=== PATIENT | female | born 1945 | race Caucasian/White ===

== ENCOUNTER → 2020-01-20 11:00 | Outpatient (BNVA) | payer OTHER, SELFPAY | PROVIDERS: PCP Internal Medicine; Visit Provider Hospitalist | DX: J96.10 Chronic respiratory failure, unspecified whether with hypoxia or hypercapnia (principal); J44.9 Chronic obstructive pulmonary disease, unspecified; R91.8 Other nonspecific abnormal finding of lung field | CPT/HCPCS: 99212 ==

== ENCOUNTER → 2020-07-20 10:20 | Outpatient (BNVA) | payer OTHER, SELFPAY | PROVIDERS: PCP Internal Medicine; Visit Provider Hospitalist | DX: R91.8 Other nonspecific abnormal finding of lung field (principal); J96.11 Chronic respiratory failure with hypoxia; J43.2 Centrilobular emphysema | CPT/HCPCS: 99212 ==

== ENCOUNTER 2020-08-17 12:52 | Outpatient (REF) | payer OTHER, SELFPAY ==
[2020-08-17 12:58] VITALS: O2SAT 98
[2020-08-17 13:44] LABS: ABG Refer to POC result
[2020-08-17 13:46] LABS: ABG pCO2 TC 37 mmHg (32-45); ABG pH TC 7.44 (7.35-7.45)
[2020-08-17 13:47] LABS: ABG Base Excess 1.8 mmol/L; ABG HCO3 25 mmol/L (22-26); ABG pO2 TC 155 (83-108)
--- NOTE | 2020-08-17 17:08 | PFT_ITS ---
FLOWS: FEV1 of 23% of predicted at 0.19 L. FVC 58% of predicted at 1.64 L. FEV1 to FVC ratio of 0.30. No bronchodilator response. LUNG VOLUMES: The patient was unable to perform lung volumes maneuvers. DIFFUSION CAPACITY: The patient was unable to perform DLCO maneuver properly. The following DLCO result may be unreliable - diffusion capacity is severely decreased. IMPRESSION: Very severe obstructive ventilatory defect with no bronchodilator response. Likely underlying severe decrease in diffusion capacity. The patient was not able to tolerate lung capacity maneuver. Benny Wade MD AP/MODL / [id number] MTDD
== END 2020-08-17 12:53 | disposition home or self-care (01) ==
LOC: HO.RESP 12:52
PROVIDERS: Visit Provider Hospitalist
DX: J96.11 Chronic respiratory failure with hypoxia (principal); J43.2 Centrilobular emphysema
CPT/HCPCS: 36600; 82803; 94060; 94729

== ENCOUNTER → 2020-09-14 11:07 | Outpatient (BNVA) | payer OTHER, SELFPAY | PROVIDERS: PCP Internal Medicine; Visit Provider Hospitalist | DX: J43.2 Centrilobular emphysema (principal); J96.11 Chronic respiratory failure with hypoxia; R91.8 Other nonspecific abnormal finding of lung field | CPT/HCPCS: 99212 ==

== ENCOUNTER → 2021-01-11 10:27 | Outpatient (BNVA) | payer OTHER, SELFPAY | PROVIDERS: PCP Internal Medicine; Visit Provider Hospitalist | DX: J96.11 Chronic respiratory failure with hypoxia (principal); J43.2 Centrilobular emphysema; R91.8 Other nonspecific abnormal finding of lung field | CPT/HCPCS: 99212 ==

== ENCOUNTER → 2021-06-14 11:01 | Outpatient (BNVA) | payer OTHER, SELFPAY | PROVIDERS: PCP Internal Medicine; Visit Provider Hospitalist | DX: J43.2 Centrilobular emphysema (principal); J96.11 Chronic respiratory failure with hypoxia; R91.8 Other nonspecific abnormal finding of lung field | CPT/HCPCS: 99212 ==

== ENCOUNTER → 2021-07-26 12:41 | Outpatient (BNVA) | payer OTHER, SELFPAY | PROVIDERS: PCP Internal Medicine; Visit Provider Hospitalist | DX: J43.2 Centrilobular emphysema (principal); J96.11 Chronic respiratory failure with hypoxia | CPT/HCPCS: 94010; 94618; 99211 ==

== ENCOUNTER → 2021-12-13 11:28 | Outpatient (BNVA) | payer OTHER, SELFPAY | PROVIDERS: PCP Family Medicine; Visit Provider Hospitalist | DX: J43.2 Centrilobular emphysema (principal); J96.11 Chronic respiratory failure with hypoxia; R91.8 Other nonspecific abnormal finding of lung field; G47.00 Insomnia, unspecified | CPT/HCPCS: 99212 ==

== ENCOUNTER → 2022-04-11 10:21 | Outpatient (BNVA) | payer OTHER, SELFPAY | PROVIDERS: PCP Family Medicine; Visit Provider Hospitalist | DX: J43.2 Centrilobular emphysema (principal); J96.11 Chronic respiratory failure with hypoxia; R91.8 Other nonspecific abnormal finding of lung field; G47.00 Insomnia, unspecified | CPT/HCPCS: 99212 ==

== ENCOUNTER 2022-10-17 09:58 | Outpatient (AMB) | payer OTHER, SELFPAY ==
[2022-10-17 10:10] VITALS: BP 110/60; PULSE 69; O2SAT 97; BMI 17.7
--- NOTE | 2022-10-17 10:10 | A.OFFVIS_ITS ---
Intake Vital Signs 10/17/22 10:10 Height 5 ft 3 in Weight 100 lb BMI 17.7 BP 110/60 Blood Pressure Location Lt brachial Position Sitting Pulse 69 Pulse Source Pulse Oximeter Pulse Oximetry (%) 97 Oxygen Delivery Method Room Air Comment 4 Liters Oxygen([facility]) Intake Visit Reasons: copd Clerk Manager Required: No Allergies codeine Allergy (Severe, Verified 10/17/22 10:15) Hives Cats Allergy (Severe, Uncoded 10/17/22 10:15) Rash/Hives Seasonal Allergies Allergy (Severe, Uncoded 10/17/22 10:15) Anaphylaxis Tetanus Allergy (Severe, Uncoded 10/17/22 10:15) Anaphylaxis HPI HPI Comments History of Present Illness Details The patient is a 77 y/o woman with a history of COPD in addition to nodular densities. She has currently been follow-up at the lung [facility]. Currently receiving Advair and also Spiriva. Having issues with hoarseness. She does have a rescue inhaler which is Combivent. She also has a nebulizer. She has not had any recent exacerbations. Over the only issue is to hoarseness a comes and goes. Denies any thrush and she reads as well. She was supposed to start pulmonary rehab but she has been dealing with other active medical issues including her wrist but still hurting her and she cannot use it well. We talked about potentially I am doing online pulmonary rehab which should be very helpful for her at this time. She continues to be on azithromycin for her chronic bronchitis. This medications have been very effective. She had an EKG done by Cardiology a week ago and per report was okay. She was then the 500 mg dose but with the hope of bring it down to 250 when she is doing better. with increasing symptoms the patient will have an x-ray today. If the x-rays abnormal consider repeating the CT scan sooner. 08/15/2019. The patient is here for pulmonary follow-up visit. Apparently back in June she had a fall down the stairs fracturing multiple ribs on her left chest. She was initially seen at [facility] ED which she was discharged. Subsequently her symptoms got worse she will having more shortness of breath more congestion she went to [facility]. There she had x- rays demonstrating 5 rib fractures on the left and also airspace disease on the right hemithorax along with mediastinal fullness in the hilum. She was treated with antibiotics. Her his blood cultures did come back positive for strep pneumo. She was treated appropriately for that. She still having shortness of breath she is having to use her oxygen more regularly. She still gets some chest discomfort. Primarily on the left side. She continues to have the shortness of breath and cough. In view of the abnormal chest x-ray in with a history of pulmonary nodules will request a CT scan of the chest to further address the right-sided abnormalities especially when she had a relatively normal stable x- ray on February 2019. 09/18/2019 the patient is here for pulmonary follow-up visit. She is feeling okay. She does complaint of chest tightness [id number] severity. Last night was have year in today she is little bit less. Likely has to do with the weather. She did take the antibiotics and prednisone and does were helpful when she was taking him. She also has been complaining of back pain. She did have a CT scan of the chest demonstrating no interval worsening nodules and no other new findings. No evidence of pneumonia. Unfortunately, it appears that she has a subacute L3 lumbar compression fracture. She did fall back in April in this may be related to that. She is having some discomfort in that area she is going to try Lidoderm patch. She can also follow-up with her primary care doctor. In the meantime will going to try to optimize respiratory therapy. Explained to her the prednisone can linger the healing of her fracture, but, at this point her breathing she is a little harder and she is willing to take a small dose to see if she gets some relief at least the month of September which is going to be hard with the weather. 01/20/2020 the patient is here for pulmonary follow-up visit. Overall she is still complaining of dyspnea on exertion. Jksm-hj-[id number] in severity. The oxygen supplementation has been very helpful. She continues use her respiratory therapy. Her current respiratory regimen has been helpful. We also looked at her most recent CT scan of the chest demonstrating stable pulmonary nodules although she did have the compression fracture. The patient does likely has some component of osteopenia from all the corticosteroids she has required for her underlying COPD. Therefore she will follow-up with her primary care doctor and see about getting a bone density test. 07/20/2020 the patient is here for pulmonary follow-up visit. She is complaining of worsening dyspnea on exertion. She has had more episodes chest tightness and shortness breath. Mostly when she is outside. When she uses her rescue inhaler it is usually not until 1 hour. The trilogy inhaler been very helpful for her. But, does not appear to be helping as this. This point we will max the trilogy inhaler consider other medications such as theophylline in the future if she continues in the meantime will have her pulmonary function studies in the addition to ABG to assess pulmonary capacity. The patient is scheduled to undergo a repeat scan of the chest in November in follow-up with thoracic surgery at time. 09/14/2020 the patient is here for a pulmonary follow-up visit. Since we last spoke the patient did start the higher dose Trelegy. She did not see any significant improvement. She also continues use her portable oxygen concentrator with activity. She complains that is too heavy. It is hard for her to carry. She is looking to potentially investing on a smaller POC through a different provider. Explained to her that the film processing supervisor POC may not potentially provide her with sufficient oxygen supplementation to make it worth it. we did review her pulmonary function studies demonstrating a very severe COPD. She has a diffusing capacity of 15% which explains her significant dyspnea with minimal activity. It is reassuring however that her blood gas demonstrates normal acid- base status and normal pCO2 as well as an elevated PA O2 on her current oxygen supplementation. Therefore, the patient does not require noninvasive ventilator. The patient does need to continue to use her current respiratory regimen. She also would benefit from pulmonary rehabilitation. She would like to avoid in-person pulmonary rehab. She is willing to consider underlying pulmonary rehabilitation. Therefore I will provide her with paperwork to look into at this time. 06/14/2021 The patient is here for a pulmonary follow-up visit. The patient overall has been doing well on the current therapy. She still complains of dyspnea on exertion. This occurs with minimal activity. She is trying to perform exercises at home. I had previously given her information about online pulmonary rehab but she opted not to do that. The patient is considering being evaluated for lung volume reduction interventions. Her pulmonary function studies are significantly abnormal. Her DLCO is only 15 percent. She has also had a history infections in the past. The patient and her family are interested in been evaluated for the Xephyr valves. However, we made a referral to [place] which may be evaluated for this procedure and the patient's insurance does not cover [facility]. We will go ahead and request other centers of excellence which provide the Xephyr valves. In the meantime will continue the current respiratory regimen. Also to note she had to go to [facility] ER with a flutter with rapid ventricular response. The patient did break on her own. However, with her tachyarrhythmias will avoid theophylline at this time. We will also switch her from Albuterol to Xopenex. 12/13/2021 the patient is here for a pulmonary follow-up visit. She sta pato that she has good days and bad days. Today is a very bad day which she feels very tired and weak. Sometimes feels great and she can do a lot of things around the house. She is having difficulties with her sleep. Did not tolerate the Trazodone. Will try Gabapentin. The patient has been following closely at [facility] for the question of lung volume reduction interventions. During the evaluation she did have a repeat CT scan of the chest sometime in September of this year demonstrating some interval increase in her nodular densities. The patient recently also around the same time in September had a CT scan at [facility]. she did follow-up with surgeon and they were not concerned. Therefore my suspicion is that we will follow these changes with repeat CT scan and 4-6 months. the patient continues with current respiratory therapy. She continues with the oxygen supplementation. She has been using the azithromycin 3 times a week. She needs to have an EKG done. She will have not done with her funding specialist or if not I did give her an order for her to do so when she goes to [facility]. 04/11/2022 the patient is here for a pulmonary follow-up visit. Overall the patient is doing well. She continues to have issues with difficulty sleeping at night and also sleeps during the daytime therefore her sleep-wake cycle still not were needs to be. She has tried multiple medications including trazodone and gabapentin without any significant improvement. She is concerned about melatonin. She is willing to try biliary on rule. Also she will try vpvi-[id number] medications she knows to avoid Benadryl as this can be problematic for deep sleep and 4 good sleep hygiene. She did undergo a CT scan of the chest in March 2022 at [facility]. It is reassuring that the nodular density has decreased in size and also that everything else is relatively stable. She is following up with [facility] as far as the lung volume reduction intervention. She is a candidate but she needs to complete pulmonary rehabilitation. I did give her information for her to consider underlying pulmonary rehab. If she feels up to it she will go ahead and follow through with [facility]. She continues years oxygen well. The patient's ABG was also reassuring. She will continue with current respiratory regimen. 10/17/2022 the patient is here for pulmonary follow-up visit. The patient overall has been doing well. She continues on her respiratory therapy. She did have to be admitted briefly to [facility] after developing atrial fibrillation with rapid ventricular response. She did talk about the complex of the cardiac and pulmonary medications and also the beta affect potentially causing her increase tachycardia and palpitations. Therefore will go ahead and switch are viewed oral to levo albuterol to see if this provides some degree of stability. In the meantime she did have a CT scan of the chest back in March 2022 at [facility] demonstrating her pulmonary nodules have been stable and also slightly decreasing in size. She is participating in the lung cancer screening program and she is scheduled to have a repeat CT scan coming up soon. The patient typically develops increasing chest congestion and does well on the azithromycin over the winter months. Although, she is on antiarrhythmic agents and patient is aware that taking antiarrhythmic agents and azithromycin macrolide therapy can resulting worsening QT prolongation. She states that she done before she is tolerating it well. Therefore I did request she get an EKG upon starting the medicine and we can also have serial EKGs to make sure that there is stable QT intervals. [facility] Medical History (Updated 10/17/22 @ 10:15 by Raffaele Foreman MD) Insomnia Pulmonary nodules Chronic respiratory failure COPD (chronic obstructive pulmonary disease) Social History (Updated 07/20/20 @ 10:36 by ROB Lester) Patient Tobacco Use Status: Former Tobacco user Tobacco use type: Cigarette Years Smoked: 54 years Review of Systems Const Reports daytime sleepiness, Reports difficulty sleeping and Denies night sweats ENT Denies change in voice, Denies lip swelling, Denies mouth pain, Reports nasal congestion, Reports nasal discharge and Denies tongue swelling Card Denies chest pain, Reports palpitations, Reports dyspnea and Reports dyspnea on exertion Resp Reports cough, Reports dyspnea and Reports dyspnea on exertion GI Denies abdominal pain Musc Denies no additional complaints Neuro Denies Neuro-related abnormal movements Psych Denies no additional complaints Endo Reports palpitations Agustín/Lymph Denies easy bleeding and Denies lymphadenopathy Aller/Immun Denies lip swelling and Denies tongue swelling Physical Exam Vital Signs: Last Vital Signs Pulse 69 10/17/22 10:10 BP 110/60 10/17/22 10:10 Pulse Ox 97 10/17/22 10:10 Oxygen Delivery Method Room Air 10/17/22 10:10 BMI result Body Mass Index 17.7 Const General: alert Neck Neck: Yes normal visual inspection, Yes full ROM and Yes no lymphadenopathy Chest Chest palpation & inspection: normal inspection of the chest Resp Auscultation: diminished lung sounds Cardio Rate: regular rate Rhythm: regular rhythm Heart sounds: S1 normal heart sound present and S2 normal heart sound present GI Palpation (GI): Soft to palpation and nontender Auscultation: normal bowel sounds Skin General skin exam: rashes and/or lesions noted Assessment & Plan Assessment & Plan (1) COPD (chronic obstructive pulmonary disease): Code(s): J44.9 - Chronic obstructive pulmonary disease, unspecified Qualifiers: COPD type: emphysema Emphysema type: centrilobular Qualified Code(s): J43.2 - Centrilobular emphysema (2) Chronic respiratory failure: Comment: Due to chronic stable COPD Code(s): J96.10 - Chronic respiratory failure, unspecified whether with hypoxia or hypercapnia Qualifiers: Respiratory failure complication: hypoxia Qualified Code(s): J96.11 - Chronic respiratory failure with hypoxia (3) Pulmonary nodules: Code(s): R91.8 - Other nonspecific abnormal finding of lung field (4) Insomnia: Code(s): G47.00 - Insomnia, unspecified Qualifiers: Insomnia type: primary Qualified Code(s): F51.01 - Primary insomnia Plan continue Trelegy 200mcg Continue nebulized therapy Restart Azithromycin MWF, needs to monitor closely QT interval serially with EKGs No Theophylline due to arrhythmias Continue oxygen supplementation On line pulmonary rehab Xopenex as meeded CT chest 4-6 months F/U 4-6 months Orders: Orders CT chest wo IV con 6 Months R91.8 - Other nonspecific abnormal finding of lung field Medications: New levalbuterol tartrate 45 mcg/actuation (Xopenex HFA) 2 puffs inhalation Q6H PRN 3 ea 3RF shortness of breath or wheezing 90 days J45.909 - Unspecified asthma, uncomplicated Changed From levalbuterol HCl 1.25 mg (3 mL) inhalation TID 30 days 270 mL 11RF J44.9 - Chronic obstructive pulmonary disease, unspecified To levalbuterol HCl 1.25 mg (3 mL) inhalation TID 810 mL 3RF 90 days J44.9 - Chronic obstructive pulmonary disease, unspecified From azithromycin Take 1 tablet on Monday/Monday/Monday 250 mg PO 3XW 28 days 12 tabs 4RF J44.9 - Chronic obstructive pulmonary disease, unspecified To azithromycin Take 1 tablet on Monday/Monday/Monday 250 mg PO 3XW 39 tabs 1RF 90 days J44.9 - Chronic obstructive pulmonary disease, unspecified From levalbuterol HCl (Xopenex) 1.25 mg (3 mL) inhalation BID 30 days 180 mL 11RF J44.9 - Chronic obstructive pulmonary disease, unspecified To levalbuterol HCl 1.25 mg (3 mL) inhalation TID 30 days 270 mL 11RF J44.9 - Chronic obstructive pulmonary disease, unspecified Coding Level of Care Code Est Pt Level 4 (37794) Diagnoses Centrilobular emphysema J43.2 COPD type: emphysema Emphysema type: centrilobular Chronic respiratory failure with hypoxia J96.11 Respiratory failure complication: hypoxia Pulmonary nodules R91.8 Primary insomnia F51.01 Insomnia type: primary Time Spent (min) 18
== END 2022-10-17 10:39 | disposition home or self-care (01) ==
PROVIDERS: PCP Family Medicine; Visit Provider Hospitalist
DX: J43.2 Centrilobular emphysema (principal); J96.11 Chronic respiratory failure with hypoxia; R91.8 Other nonspecific abnormal finding of lung field; F51.01 Primary insomnia
CPT/HCPCS: 99214

== ENCOUNTER → 2022-10-17 09:58 | Outpatient (BNVA) | payer OTHER, SELFPAY | PROVIDERS: Visit Provider Hospitalist | DX: J43.2 Centrilobular emphysema (principal); J96.11 Chronic respiratory failure with hypoxia; R91.8 Other nonspecific abnormal finding of lung field; F51.01 Primary insomnia; Z79.899 Other long term (current) drug therapy | CPT/HCPCS: 99212 ==

== ENCOUNTER 2023-04-17 09:22 | Outpatient (AMB) | payer OTHER, SELFPAY ==
[2023-04-17 09:57] VITALS: BP 128/70; PULSE 80; O2SAT 94; BMI 18.3
--- NOTE | 2023-04-17 09:57 | A.OFFVIS_ITS ---
Intake Vital Signs 04/17/23 09:57 Height 5 ft 2 in Weight 100 lb BMI 18.3 BP 128/70 Blood Pressure Location Lt brachial Position Sitting Pulse 80 Pulse Source Pulse Oximeter Pulse Oximetry (%) 94 Oxygen Delivery Method Room Air Comment 5 Liters Oxygen([facility]) Intake Visit Reasons: copd [place] [employer] Required: No Allergies codeine Allergy (Severe, Verified 04/17/23 10:00) Hives Cats Allergy (Severe, Uncoded 04/17/23 10:00) Rash/Hives Seasonal Allergies Allergy (Severe, Uncoded 04/17/23 10:00) Anaphylaxis Tetanus Allergy (Severe, Uncoded 04/17/23 10:00) Anaphylaxis HPI HPI Comments History of Present Illness Details The patient is a 78 y/o woman with a history of COPD in addition to nodular densities. She has currently been follow-up at the lung [facility]. Currently receiving Advair and also Spiriva. Having issues with hoarseness. She does have a rescue inhaler which is Combivent. She also has a nebulizer. She has not had any recent exacerbations. Over the only issue is to hoarseness a comes and goes. Denies any thrush and she reads as well. She was supposed to start pulmonary rehab but she has been dealing with other active medical issues including her wrist but still hurting her and she cannot use it well. We talked about potentially I am doing online pulmonary rehab which should be very helpful for her at this time. She continues to be on azithromycin for her chronic bronchitis. This medications have been very effective. She had an EKG done by Cardiology a week ago and per report was okay. She was then the 500 mg dose but with the hope of bring it down to 250 when she is doing better. with increasing symptoms the patient will have an x-ray today. If the x-rays abnormal consider repeating the CT scan sooner. 10/17/2022 the patient is here for pulmon ailyn follow-up visit. The patient overall has been doing well. She continues on her respiratory therapy. She did have to be admitted briefly to [facility] after developing atrial fibrillation with rapid ventricular response. She did talk about the complex of the cardiac and pulmonary medications and also the beta affect potentially causing her increase tachycardia and palpitations. Therefore will go ahead and switch are viewed oral to levo albuterol to see if this provides some degree of stability. In the meantime she did have a CT scan of the chest back in March 2022 at [facility] demonstrating her pulmonary nodules have been stable and also slightly decreasing in size. She is participating in the lung cancer screening program and she is scheduled to have a repeat CT scan coming up soon. The patient typically develops increasing chest congestion and does well on the azithromycin over the winter months. Although, she is on antiarrhythmic agents and patient is aware that taking antiarrhythmic agents and azithromycin macrolide therapy can resulting worsening QT prolongation. She states that she done before she is tolerating it well. Therefore I did request she get an EKG upon starting the medicine and we can also have serial EKGs to make sure that there is stable QT intervals. 04/17/2023 the patient is here for a pulm onary follow-up visit. The patient has been doing fair. She tried the Xopenex but it did not help her breathing as much as the Combivent. Therefore she went back on the Combivent. I did explain to her that if her atrial fibrillation is acting up with increased heart rate then she may want to just use levalbuterol during those episodes. Meantime she continues on high-dose Trelegy. She has not on prednisone which is reassuring. She also has nebulized therapy including budesonide that are recent to the pharmacy. She will be stopping the macrolide therapy this month. Clinically she is doing well from a respiratory status. She did have a recent CT scan of the chest done at [facility] which demonstrated a new pulmonary nodule. She was seen by thoracic surgery and they recommended a CT scan in 3 months time. Indeed the patient is high risk for any diagnostic interventions. She has advanced respiratory failure. Would not advise her undergoing any type of biopsy. However, the nodule appears to be concerning his increasing size then would consider stereotactic radiation. For now will just have to wait for the repeat CT scan which is planned for July of this year. [facility] Medical History (Updated 10/17/22 @ 10:15 by Raffaele Foreman MD) Insomnia Pulmonary nodules Chronic respiratory failure COPD (chronic obstructive pulmonary disease) Social History (Updated 07/20/20 @ 10:36 by ROB Lester) Patient Tobacco Use Status: Former Tobacco user Tobacco use type: Cigarette Years Smoked: 54 years Review of Systems Const Reports daytime sleepiness, Reports difficulty sleeping and Denies night sweats ENT Denies change in voice, Denies lip swelling, Denies mouth pain, Reports nasal congestion, Reports nasal discharge and Denies tongue swelling Card Denies chest pain, Reports palpitations, Reports dyspnea and Reports dyspnea on exertion Resp Reports cough, Reports dyspnea and Reports dyspnea on exertion GI Denies abdominal pain Musc Denies no additional complaints Neuro Denies Neuro-related abnormal movements Psych Denies no additional complaints Endo Reports palpitations Agustín/Lymph Denies easy bleeding and Denies lymphadenopathy Aller/Immun Denies lip swelling and Denies tongue swelling Physical Exam Vital Signs: Last Vital Signs Pulse 80 04/17/23 09:57 BP 128/70 04/17/23 09:57 Pulse Ox 94 04/17/23 09:57 Oxygen Delivery Method Room Air 04/17/23 09:57 BMI result Body Mass Index 18.3 Const General: alert Neck Neck: Yes normal visual inspection, Yes full ROM and Yes no lymphadenopathy Chest Chest palpation & inspection: normal inspection of the chest Resp Effort & Inspection: normal respiratory effort Auscultation: diminished lung sounds Cardio Rate: regular rate Rhythm: regular rhythm Heart sounds: S1 normal heart sound present and S2 normal heart sound present GI Palpation (GI): Soft to palpation and nontender Auscultation: normal bowel sounds Skin General skin exam: rashes and/or lesions noted Assessment & Plan Assessment & Plan (1) COPD (chronic obstructive pulmonary disease): Code(s): J44.9 - Chronic obstructive pulmonary disease, unspecified Qualifiers: COPD type: emphysema Emphysema type: centrilobular Qualified Code(s): J43.2 - Centrilobular emphysema (2) Chronic respiratory failure: Comment: Due to chronic stable COPD Code(s): J96.10 - Chronic respiratory failure, unspecified whether with hypoxia or hypercapnia Qualifiers: Respiratory failure complication: hypoxia Qualified Code(s): J96.11 - Chronic respiratory failure with hypoxia (3) Pulmonary nodules: Code(s): R91.8 - Other nonspecific abnormal finding of lung field (4) Insomnia: Code(s): G47.00 - Insomnia, unspecified Qualifiers: Insomnia type: primary Qualified Code(s): F51.01 - Primary insomnia Plan continue Trelegy 200mcg continue combivent Continue nebulized therapy stop Azithromycin MWF this month No Theophylline due to arrhythmias Continue oxygen supplementation On line pulmonary rehab Xopenex as meeded CT chest in July 2023 at [facility]. If the nodule increases in size and is concerning for malignant process would be reasonable to offer her stereotactic r adiation without a biopsy in view of her high risk for complications. F/U 6 months Medications: Changed From budesonide 0.5 mg (2 mL) inhalation BID 30 days 120 mL 11RF J44.9 - Chronic obstructive pulmonary disease, unspecified To budesonide 0.5 mg (2 mL) inhalation DAILY 30 days 60 mL 11RF J44.9 - Chronic obstructive pulmonary disease, unspecified Refilled Trelegy Ellipta 200-62.5-25 mcg (wturenfsaba-jkdecofxt-rmenolhx) 1 inh inhalation DAILY 90 days 3 ea 3RF NS ipratropium-albuterol 20-100 mcg/actuation (Combivent Respimat) space evenly during waking hours 1 puff inhalation QID 30 days 4 grams 11RF Coding Level of Care Code Est Pt Level 4 (68291) Diagnoses Centrilobular emphysema J43.2 COPD type: emphysema Emphysema type: centrilobular Chronic respiratory failure with hypoxia J96.11 Respiratory failure complication: hypoxia Pulmonary nodules R91.8 Primary insomnia F51.01 Insomnia type: primary Time Spent (min) 17
== END 2023-04-17 10:22 | disposition home or self-care (01) ==
PROVIDERS: PCP Family Medicine; Visit Provider Hospitalist
DX: J43.2 Centrilobular emphysema (principal); J96.11 Chronic respiratory failure with hypoxia; R91.8 Other nonspecific abnormal finding of lung field; F51.01 Primary insomnia
CPT/HCPCS: 99214

== ENCOUNTER → 2023-04-17 09:22 | Outpatient (BNVA) | payer OTHER, SELFPAY | PROVIDERS: PCP Family Medicine; Visit Provider Hospitalist | DX: J43.2 Centrilobular emphysema (principal); J96.11 Chronic respiratory failure with hypoxia; R91.8 Other nonspecific abnormal finding of lung field; F51.01 Primary insomnia | CPT/HCPCS: 99212 ==

== ENCOUNTER 2023-08-11 09:54 | Outpatient (REF) | payer OTHER, SELFPAY | END 2023-08-11 09:55 | disposition home or self-care (01) | LOC: CF 09:54 | DX: Z13.89 Encounter for screening for other disorder (principal) ==

== ENCOUNTER 2023-11-28 08:55 | Outpatient (AMB) | payer OTHER, SELFPAY ==
[2023-11-28 09:07] VITALS: BP 118/60; PULSE 80; O2SAT 97; BMI 16.6
--- NOTE | 2023-11-28 09:07 | A.OFFVIS_ITS ---
Vital Signs 11/28/23 09:07 Height 5 ft 2 in Weight 91 lb BMI 16.6 BP 118/60 Blood Pressure Location Lt brachial Position Sitting Pulse 80 Pulse Source Pulse Oximeter Pulse Oximetry (%) 97 Oxygen Delivery Method Room Air Comment 3 Liters Oxygen([facility]) Intake Visit Reasons: COPD Threat Monitoring Analyst Required: No Allergies codeine Allergy (Severe, Verified 11/28/23 09:10) Hives Cats Allergy (Severe, Uncoded 11/28/23 09:10) Rash/Hives Seasonal Allergies Allergy (Severe, Uncoded 11/28/23 09:10) Anaphylaxis Tetanus Allergy (Severe, Uncoded 11/28/23 09:10) Anaphylaxis HPI Comments Details: The patient is a 78 y/o woman with a history of COPD in addition to nodular densities. She has currently been follow-up at the lung cancer screening program. Currently receiving Advair and also Spiriva. Having issues with hoarseness. She does have a rescue inhaler which is Combivent. She also has a nebulizer. She has not had any recent exacerbations. Over the only issue is to hoarseness a comes and goes. Denies any thrush and she reads as well. She was supposed to start pulmonary rehab but she has been dealing with other active medical issues including her wrist but still hurting her and she cannot use it well. We talked about potentially I am doing online pulmonary rehab which should be very helpful for her at this time. She continues to be on azithromycin for her chronic bronchitis. This medications have been very effective. She had an EKG done by Cardiology a week ago and per report was okay. She was then the 500 mg dose but with the hope of bring it down to 250 when she is doing better. with increasing symptoms the patient will have an x-ray today. If the x-rays abnormal consider repeating the CT scan sooner. 10/17/2022 the patient is here for pulmonary follow-up visit. The patient overall has been doing well. She continues on her respiratory therapy. She did have to be admitted briefly to [facility] after developing atrial fibrillation with rapid ventricular response. She did talk about the complex of the cardiac and pulmonary medications and also the beta affect potentially causing her increase tachycardia and palpitations. Therefore will go ahead and switch are viewed oral to levo albuterol to see if this provides some degree of stability. In the meantime she did have a CT scan of the chest back in March 2022 at [facility] demonstrating her pulmonary nodules have been stable and also slightly decreasing in size. She is participating in the lung cancer screening program and she is scheduled to have a repeat CT scan coming up soon. The patient typically develops increasing chest congestion and does well on the azithromycin over the winter months. Although, she is on antiarrhythmic agents and patient is aware that taking antiarrhythmic agents and azithromycin macrolide therapy can resulting worsening QT prolongation. She states that she done before she is tolerating it well. Therefore I did request she get an EKG upon starting the medicine and we can also have serial EKGs to make sure that there is stable QT intervals. 04/17/2023 the patient is here for a pulmonary follow-up visit. The patient has been doing fair. She tried the Xopenex but it did not help her breathing as much as the Combivent. Therefore she went back on the Combivent. I did explain to her that if her atrial fibrillation is acting up with increased heart rate then she may want to just use levalbuterol during those episodes. Meantime she continues on high-dose Trelegy. She has not on prednisone which is reassuring. She also has nebulized therapy including budesonide that are recent to the pharmacy. She will be stopping the macrolide therapy this month. Clinically she is doing well from a respiratory status. She did have a recent CT scan of the chest done at [facility] which demonstrated a new pulmonary nodule. She was seen by thoracic surgery and they recommended a CT scan in 3 months time. Indeed the patient is high risk for any diagnostic interventions. She has advanced respiratory failure. Would not advise her undergoing any type of biopsy. However, the nodule appears to be concerning his increasing size then would consider stereotactic radiation. For now will just have to wait for the repeat CT scan which is planned for July of this year. 11/28/2023 the patient is here for a pulmonary follow-up visit. Since we last spoke she had a fall and she fractured her right hip. She was admitted to [facility] and then discharged over to [facility]. There she received therapy. She is now back at using a walker although she is very limited because of pain. Breathing chavez she is doing okay. Because of all the issues going on the patient was not able to get her CT scan at [facility]. She does have 1 nodule that has been concerning in appearance. She had to cancel her CT scan. She is going to wait another month or so to receive physical therapy and she is going to call to reschedule the CT scan. If she has any issues she can always call here and I can order it for her. The patient will continue her current respiratory therapy. Her oxygenation has actually been better. She had been able to tolerate 2 L at rest and 3 L with activity with a good oxygenation. Has not had to use the higher levels of oxygen which is reassuring. At this point the patient is doing well will plan to follow-up in April. If she has any issues prior to that she will call for an earlier assessment. [facility] Medical History (Updated 10/17/22 @ 10:15 by Raffaele Foreman MD) Insomnia Pulmonary nodules Chronic respiratory failure COPD (chronic obstructive pulmonary disease) Social History (Updated 07/20/20 @ 10:36 by ROB Lester) Patient Tobacco Use Status: Former Tobacco user Tobacco use type: Cigarette Years Smoked: 54 years Review of Systems Const Reports daytime sleepiness, Reports difficulty sleeping and Denies night sweats ENT Denies change in voice, Denies lip swelling, Denies mouth pain, Reports nasal congestion, Reports nasal discharge and Denies tongue swelling Card Denies chest pain, Reports palpitations, Reports dyspnea and Reports dyspnea on exertion Resp Reports cough, Reports dyspnea and Reports dyspnea on exertion GI Denies abdominal pain Musc Reports as per HPI, Reports abnormal gait, Reports arthralgias, Reports joint swelling, Reports muscle weakness and Reports stiffness Neuro Denies Neuro-related abnormal movements and Reports abnormal gait Psych Denies no additional complaints Endo Reports palpitations Agustín/Lymph Denies easy bleeding and Denies lymphadenopathy Aller/Immun Denies lip swelling and Denies tongue swelling Physical Exam Vital Signs: Last Vital Signs Pulse 80 11/28/23 09:07 BP 118/60 11/28/23 09:07 Pulse Ox 97 11/28/23 09:07 Oxygen Delivery Method Room Air 11/28/23 09:07 BMI result Body Mass Index 16.6 Const General: alert Neck Neck: Yes normal visual inspection, Yes full ROM and Yes no lymphadenopathy Chest Chest palpation & inspection: normal inspection of the chest Resp Effort & Inspection: normal respiratory effort Auscultation: diminished lung sounds Cardio Rate: regular rate Rhythm: regular rhythm Heart sounds: S1 normal heart sound present and S2 normal heart sound present GI Palpation (GI): Soft to palpation and nontender Auscultation: normal bowel sounds Skin General skin exam: rashes and/or lesions noted Assessment & Plan Assessment & Plan (1) COPD (chronic obstructive pulmonary disease): Code(s): J44.9 - Chronic obstructive pulmonary disease, unspecified Category: Medical Qualifiers: COPD type: emphysema Emphysema type: centrilobular Qualified Code(s): J43.2 - Centrilobular emphysema (2) Chronic respiratory failure: Comment: Due to chronic stable COPD Code(s): J96.10 - Chronic respiratory failure, unspecified whether with hypoxia or hypercapnia Category: Medical Qualifiers: Respiratory failure complication: hypoxia Qualified Code(s): J96.11 - Chronic respiratory failure with hypoxia (3) Pulmonary nodules: Code(s): R91.8 - Other nonspecific abnormal finding of lung field Category: Medical (4) Insomnia: Code(s): G47.00 - Insomnia, unspecified Category: Medical Qualifiers: Insomnia type: primary Qualified Code(s): F51.01 - Primary insomnia Plan continue Trelegy 200mcg continue combivent Continue nebulized therapy No Theophylline due to arrhythmias Continue oxygen supplementation Xopenex as meeded CT chest postponed. If the nodule increases in size and is concerning for malignant process would be reasonable to offer her stereotactic radiation without a biopsy in view of her high risk for complications. F/U 6 months Coding Level of Care Code Est Pt Level 4 (93013) Complex EM visit Add On G2211 Diagnoses Centrilobular emphysema J43.2 COPD type: emphysema Emphysema type: centrilobular Chronic respiratory failure with hypoxia J96.11 Respiratory failure complication: hypoxia Pulmonary nodules R91.8 Primary insomnia F51.01 Insomnia type: primary Time Spent (min) 17
== END 2023-11-28 09:25 | disposition home or self-care (01) ==
PROVIDERS: PCP Family Medicine; Referring Provider Family Medicine; Visit Provider Hospitalist
DX: J43.2 Centrilobular emphysema (principal); J96.11 Chronic respiratory failure with hypoxia; R91.8 Other nonspecific abnormal finding of lung field; F51.01 Primary insomnia
CPT/HCPCS: 99214

== ENCOUNTER → 2023-11-28 08:55 | Outpatient (BNVA) | payer OTHER, SELFPAY | PROVIDERS: PCP Family Medicine; Visit Provider Hospitalist | DX: J43.2 Centrilobular emphysema (principal); J96.11 Chronic respiratory failure with hypoxia; R91.8 Other nonspecific abnormal finding of lung field; F51.01 Primary insomnia | CPT/HCPCS: 99212 ==

== ENCOUNTER 2024-04-19 11:24 | Outpatient (AMB) | payer OTHER, SELFPAY ==
[2024-04-19 11:27] VITALS: BP 108/64; PULSE 77; O2SAT 98; BMI 15.9
--- NOTE | 2024-04-19 11:27 | A.OFFVIS_ITS ---
Vital Signs 04/19/24 11:27 Height 5 ft 2 in Weight 87 lb 1.321 oz BMI 15.9 BP 108/64 Blood Pressure Location Lt brachial Position Sitting Pulse 77 Pulse Source Pulse Oximeter Pulse Oximetry (%) 98 Oxygen Delivery Method Nasal Cannula Oxygen Flow Rate 4 Intake Visit Reasons: COPD Allergies codeine Allergy (Severe, Verified 04/19/24 11:30) Hives Cats Allergy (Severe, Uncoded 04/19/24 11:30) Rash/Hives Seasonal Allergies Allergy (Severe, Uncoded 04/19/24 11:30) Anaphylaxis Tetanus Allergy (Severe, Uncoded 04/19/24 11:30) Anaphylaxis HPI Comments Details: The patient is a 79 y/o woman with a history of COPD in addition to nodular densities. She has currently been follow-up at the lung cancer screening program. Currently receiving Advair and also Spiriva. Having issues with hoarseness. She does have a rescue inhaler which is Combivent. She also has a nebulizer. She has not had any recent exacerbations. Over the only issue is to hoarseness a comes and goes. Denies any thrush and she reads as well. She was supposed to start pulmonary rehab but she has been dealing with other active medical issues including her wrist but still hurting her and she cannot use it well. We talked about potentially I am doing online pulmonary rehab which should be very helpful for her at this time. She continues to be on azithromycin for her chronic bronchitis. This medications have been very effective. She had an EKG done by Cardiology a week ago and per report was okay. She was then the 500 mg dose but with the hope of bring it down to 250 when she is doing better. with increasing symptoms the patient will have an x-ray today. If the x-rays abnormal consider repeating the CT scan sooner. 10/17/2022 the patient is here for pulmonary follow-up visit. The patient overall has been doing well. She continues on her respiratory therapy. She did have to be admitted briefly to [facility] after developing atrial fibrillation with rapid ventricular response. She did talk about the complex of the cardiac and pulmonary medications and also the beta affect potentially causing her increase tachycardia and palpitations. Therefore will go ahead and switch are viewed oral to levo albuterol to see if this provides some degree of stability. In the meantime she did have a CT scan of the chest back in March 2022 at [facility] demonstrating her pulmonary nodules have been stable and also slightly decreasing in size. She is participating in the lung cancer screening program and she is scheduled to have a repeat CT scan coming up soon. The patient typically develops increasing chest congestion and does well on the azithromycin over the winter months. Although, she is on antiarrhythmic agents and patient is aware that taking antiarrhythmic agents and azithromycin macrolide therapy can resulting worsening QT prolongation. She states that she done before she is tolerating it well. Therefore I did request she get an EKG upon starting the medicine and we can also have serial EKGs to make sure that there is stable QT intervals. 04/17/2023 the patient is here for a pulmonary follow-up visit. The patient has been doing fair. She tried the Xopenex but it did not help her breathing as much as the Combivent. Therefore she went back on the Combivent. I did explain to her that if her atrial fibrillation is acting up with increased heart rate then she may want to just use levalbuterol during those episodes. Meantime she continues on high-dose Trelegy. She has not on prednisone which is reassuring. She also has nebulized therapy including budesonide that are recent to the pharmacy. She will be stopping the macrolide therapy this month. Clinically s he is doing well from a respiratory status. She did have a recent CT scan of the chest done at [facility] which demonstrated a new pulmonary nodule. She was seen by thoracic surgery and they recommended a CT scan in 3 months time. Indeed the patient is high risk for any diagnostic interventions. She has advanced respiratory failure. Would not advise her undergoing any type of biopsy. However, the nodule appears to be concerning his increasing size then would consider stereotactic radiation. For now will just have to wait for the repeat CT scan which is planned for July of this year. 11/28/2023 the patient is here for a pulmonary follow-up visit. Since we last spoke she had a fall and she fractured her right hip. She was admitted to [facility] and then discharged over to [facility]. There she received therapy. She is now back at using a walker although she is very limited because of pain. Breathing chavez she is doing okay. Because of all the issues going on the patie nt was not able to get her CT scan at [facility]. She does have 1 nodule that has been concerning in appearance. She had to cancel her CT scan. She is going to wait another month or so to receive physical therapy and she is going to call to reschedule the CT scan. If she has any issues she can always call here and I can order it for her. The patient will continue her current respiratory therapy. Her oxygenation has actually been better. She had been able to tolerate 2 L at rest and 3 L with activity with a good oxygenation. Has not had to use the higher levels of oxygen which is reassuring. At this point the patient is doing well will plan to follow-up in April. If she has any issues prior to that she will call for an earlier assessment. 04/19/2024 the patient is here for pulmonary follow-up visit. She is still under the weather. She has been sick for about 2 weeks. She was having significant chest congestion nasal congestion and cough. In although she is feeling a little better but she still having a lot of congestion difficulty expectorating. She is using Mucinex partial response. In addition to that she was found to have a new pulmonary nodule that has to be followed closely. She is following closely also with thoracic surgery. Her CT scan scheduled for next week. Therefore will go ahead and treat her for a lower respiratory infection to make sure with clear air as much as possible from her underlying acute illness to make sure that we see proper findings on the CT scan. She continues with the oxygen therapy with good effect. Continues with inhaler therapy also with good effect. Will plan to follow-up sometime in the fall. If she develops any worsening symptoms she will call. In the meantime will request her CT scan from next week. [facility] Medical History (Updated 04/21/24 @ 22:25 by Raffaele Foreman MD) Insomnia Pulmonary nodules Chronic respiratory failure COPD (chronic obstructive pulmonary disease) Social History Patient Tobacco Use Status: Former Tobacco user Tobacco use type: Cigarette Years Smoked: 54 years Review of Systems Const Reports daytime sleepiness, Reports difficulty sleeping and Denies night sweats ENT Denies change in voice, Denies lip swelling, Denies mouth pain, Reports nasal congestion, Reports nasal discharge and Denies tongue swelling Card Denies chest pain, Reports palpitations, Reports dyspnea and Reports dyspnea on exertion Resp Reports cough, Reports dyspnea and Reports dyspnea on exertion GI Denies abdominal pain Musc Reports as per HPI, Reports abnormal gait, Reports arthralgias, Reports joint swelling, Reports muscle weakness and Reports stiffness Neuro Denies Neuro-related abnormal movements and Reports abnormal gait Psych Denies no additional complaints Endo Reports palpitations Agustín/Lymph Denies easy bleeding and Denies lymphadenopathy Aller/Immun Denies lip swelling and Denies tongue swelling Physical Exam Vital Signs: Last Vital Signs Pulse 77 04/19/24 11:27 BP 108/64 04/19/24 11:27 Pulse Ox 98 04/19/24 11:27 Oxygen Delivery Method Nasal Cannula 04/19/24 11:27 Oxygen Flow Rate 4 04/19/24 11:27 BMI result Body Mass Index 15.9 Const General: alert Neck Neck: Yes normal visual inspection, Yes full ROM and Yes no lymphadenopathy Chest Chest palpation & inspection: normal inspection of the chest Resp Effort & Inspection: normal respiratory effort Auscultation: diminished lung sounds Cardio Rate: regular rate Rhythm: regular rhythm Heart sounds: S1 normal heart sound present and S2 normal heart sound present GI Palpation (GI): Soft to palpation and nontender Auscultation: normal bowel sounds Skin General skin exam: rashes and/or lesions noted Assessment & Plan Assessment & Plan (1) COPD (chronic obstructive pulmonary disease): Code(s): J44.9 - Chronic obstructive pulmonary disease, unspecified Category: Medical Qualifiers: COPD type: COPD with acute lower respiratory infection Qualified Code(s): J44.0 - Chronic obstructive pulmonary disease with (acute) lower respiratory infection (2) Chronic respiratory failure: Comment: Due to chronic stable COPD Code(s): J96.10 - Chronic respiratory failure, unspecified whether with hypoxia or hypercapnia Category: Medical Qualifiers: Respiratory failure complication: hypoxia Qualified Code(s): J96.11 - Chronic respiratory failure with hypoxia (3) Pulmonary nodules: Code(s): R91.8 - Other nonspecific abnormal finding of lung field Category: Medical (4) Insomnia: Code(s): G47.00 - Insomnia, unspecified Category: Medical Qualifiers: Insomnia type: primary Qualified Code(s): F51.01 - Primary insomnia Plan continue Trelegy 200mcg continue combivent Continue nebulized therapy start Vantin/Doxy start low dose prednisone sputum culture if no better No Theophylline due to arrhythmias Continue oxygen supplementation Xopenex as meeded CT chest at [facility] F/U 4-6 months Medications: New doxycycline hyclate 100 mg PO BID 20 caps 0RF 10 days amoxicillin-pot clavulanate 875-125 mg 1 tab PO BID 20 tabs 0RF 10 days prednisone PO daily; Take 2 tabs daily x 5 days, then 1 tab daily x 5 days 15 tabs 0RF 10 days Coding Level of Care Code Est Pt Level 4 (52429) Complex EM visit Add On G2211 Diagnoses Chronic obstructive pulmonary disease with acute lower respiratory infection J44.0 COPD type: COPD with acute lower respiratory infection Chronic respiratory failure with hypoxia J96.11 Respiratory failure complication: hypoxia Pulmonary nodules R91.8 Primary insomnia F51.01 Insomnia type: primary Time Spent (min) 17
--- OUTSIDE RECORDS SUMMARY | 2024-04-19 13:11 | XMS_ITS | Clinical Summary ---
Author Organization [facility] [address] [facility] Address [address] [place] [address] Phone Care Team Providers Care Car Dropper Name Role Phone Rickie Simpson MD Primary Care Provider [phone] Allergies Active Allergy Reactions Criticality Noted Date Comments Cat Dander Runny nose 08/18/2008 Codeine Rash 10/02/2007 Gabapentin Other 07/20/2022 Feels hungover the next day, brain fog Other 06/19/2008 Pollen Extracts 06/19/2008 Tetanus-Diphtheria Toxoids-Td Swelling 10/02/2007 Medications dilTIAZem LA (Cardizem LA) 120 mg 24 hr tablet Take 1 tablet (120 mg total) by mouth 1 (one) time each day. 3 Active propafenone (RYTHMOL) 225 mg tablet Take 1 tablet (225 mg total) by mouth every 12 (twelve) hours. 4 Active apixaban (Eliquis) 5 mg tablet Take 1 tablet (5 mg total) by mouth 2 (two) times a day. 4 Active ipratropium-alb uteroL (Combivent Respimat) 20-100 mcg/actuation inhaler 4 Active fluticasone-ume clidinium-vilan terol (Trelegy Ellipta) 200-62.5-25 mcg inhaler Inhale into the lungs. 4 Active cholecalciferol (VITAMIN D-3) 50 mcg (2,000 unit) tablet Take 1 tablet (2,000 Units total) by mouth 1 (one) time each day. 4 Active budesonide (PULMICORT) 0.5 mg/2 mL nebulizer solution Inhale 2 mL (0.5 mg total) by mouth 1 (one) time each day. Active albuterol 2.5 mg /3 mL (0.083 %) nebulizer solution Take 1 Vial by nebulization every 4 hours as needed for Shortness of Breath. 9 Active Oxygen Therapy (O2) gas Inhale 3 L into the lungs. Active calcium carbonate (TUMS) 500 mg (200 mg elemental calcium) chewable tablet Take 2 Drops by mouth daily. 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 Last seen 06/14/2021. Plan to continue Trelegy 200 mcg, continue nebulized therapy, stop azithromycin MWF. No theophylline due to arrhythmias. Continue oxygen supplementation. Online pulmonary rehab. Start Xopenex. Continue budesonide. Referred to [place] for evaluation for lung volume reduction interventions. Follow-up in 4 to 6 months. Oxygen dependent 10/17/2016 Vitamin D deficiency 02/17/2016 Anxiety 07/03/2015 Lung nodules 12/24/2012 Overview (11/17/2023): Seeing Dr. Lara and being followed Last Assessment & Plan: Ms. Tanner is a 78 y/o female who is being followed by the [facility] with LDCT scans for pulmonary nodules. She presents today for a three month follow up LDCT scan which was performed on July 10, 2023. This shows the previously seen linear consolidation at the left apex to be slightly decreased in size. There is a new irregular, elongated shaped nodular denisity in the anterior lingular (3, 123). We discussed the causes of pulmonary nodules and recommendations include a 3 month follow up for this new opacity. She is instructed to call us with any questions or concerns prior to her next visit. COPD (chronic obstructive pulmonary disease) Osteoporosis 06/19/2008 Thyroid nodule 06/19/2008 Overview (11/17/2023): August 2018 US: CONCLUSIONS: Bilateral tiny thyroid nodules without suspicious features. Atrial fibrillation 10/02/2007 Overview (11/17/2023): Last Assessment & Plan: In sinus rhythm, rate is controlled on diltiazem, rhythm is controlled on Rythmol. She is anticoagulated on Eliquis. She understands risks and benefits of anticoagulation and wished to continue. EKG is stable. Lumbago 10/02/2007 Overview (11/17/2023): Failed surgery. Patient is follow and [facility]. She is prescribe hydrocodone/APAP there. Also treated with injections to the SI joints Neuropathy 10/02/2007 Immunizations Name Administration Dates Next Due Influenza trivalent, 0.5mL ( Fluzone High-dose) 65yo and older 10/24/2022,10/27/2019,11/09/2015 Influenza trivalent, with pr eservative (Fluzone; Afluria) 6mo and older 01/05/2015,02/07/2014,12/24/2012 Influenza, Unspecified 11/25/2021 Moderna SARS-CoV-2 COVID-19, mRNA, LNP-S, preservative free 05/05/2020,04/06/2020 Pfizer SARS-CoV-2 COVID-19, mRNA, LNP-S, preservative free 12/24/2021 Pneumococcal conjugate 13 va lent (Prevnar 13, PCV13) 2mo and older 08/07/2019,07/03/2015 Pneumococcal polysaccharide 23 valent (Pneumovax 23) 2yo and older 12/24/2012 Surgical History Surgery Date Site/Laterality Comments HERNIA REPAIR PROCEDURE: REPAIR INGUINAL HERNIA; COMMENT: pt says nerve entrapment resulted from repair BREAST LUMPECTOMY PROCEDURE: ---- BREAST LUMP BIOPSY ----; COMMENT: cyst per patient BACK SURGERY PROCEDURE: HISTORICAL BACK SURGERY HAND SURGERY PROCEDURE: CO UNLISTED PROCEDURE HANDS/FINGERS; COMMENT: to repair a nerve SHOULDER SURGERY PROCEDURE: CO UNLISTED PROCEDURE SHOULDER Medical History Medical History Date Comments Lumbago 10/02/2007 DX:Lumbago Neuropathy 10/02/2007 DX:Neuropathy Atrial fibrillation ([facility]) 10/02/2007 DX :Atrial fibrillation ([facility]) Osteoporosis 06/19/2008 DX:Osteoporosis Anxiety 07/03/2015 DX:Anxiety COPD (chronic obstructive pu lmonary disease) ([facility]) 11/25/2011 DX:COPD (chronic obstructive pulmonary disease) ([facility]) History of squamous cell car cinoma of skin 07/11/2008 DX:History of squamous cell carcinoma of skin; COMMENT: 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 Lara and being followed Medical non-compliance 04/01/2014 DX:Medica l non-compliance Oxygen dependent 10/17/2016 DX:Oxygen depen dent Thyroid nodule 06/19/2008 DX:Thyroid nodul e Tobacco use disorder 07/29/2009 DX:Tobacco use disorder Unintentional weight loss 04/01/2014 DX:Uni ntentional weight loss; COMMENT: Refusing colonoscopy and mammogram, see notes from [id number]. Lung nodules were stable, no additional f/u was recommended by Dr Morfin Due for repeat thyroid ultrasound (recommended 1 year after ultrasound in 2009), order placed Mar 2014 Vitamin D deficiency 02/17/2016 DX:Vitamin D deficiency Bronchopneumonia 03/08/2017 DX:Bronchopneum onia Family History Medical History Relation Name Comments Lung cancer Father Breast cancer Maternal Grandmother Hypertension Mother DM Coronary artery disease Neg Hx Relation Name Status Comments Father lung and bone C A Maternal Grandmother Mother diabetes, htn, djd Social History Tobacco Use Types Packs/Day Years Used Date Smoking Tobacco: Former Cigarettes Smokeless Tobacco: Never Alcohol Use Standard Drinks/Week Comments Yes 0 (1 standard drink = 0.6 oz pur e alcohol) Comments Unknown Sex and Gender Information Value Date Recorded Sex Assigned at Female 03/27/2024 9:20 AM EST Legal Sex Female 4:22 AM EST Gender Identity Female 03/27/2024 9:20 AM EST Sexual Orientation Not on file Obstetrics History Last Filed Vital Signs Vital Sign Reading Time Taken Comments Blood Pressure 91/54 11/10/2023 12:58 PM EDT Pulse 74 11/10/2023 12:58 PM EDT Temperature - - Respiratory Rate - - Oxygen Saturation 96% 11/08/2023 3:09 PM EDT 4 L O2 Inhaled Oxygen Concentration - - Weight 43.1 kg (95 lb) 11/10/2023 12:58 PM EDT Height 157.5 cm (5' 2 ) 11/10/2023 12:58 PM EDT Body Mass Index 17.38 11/10/2023 12:58 PM EDT Plan of Treatment Upcoming Encounters Date Type Department Care Team (Late st Contact Info) Description 04/22/2024 1:00 PM EDT Appointment [facility] CT Scan [address] [place] [phone] 04/29/2024 1:30 PM EDT Office Visit Thoracic Surgery - [place] [address] [phone] Wen Caceres MD [address] [id number] Health Maintenance Due Date Last Done Comments DTaP,Tdap,and Td Vaccines (1 - Tdap) 1964 Zoster Vaccines (1 of 2) 04/14/1995 RSV Immunization Patients 60+ Years Old (1 - 1-dose 75+ series) 2020 Colorectal Cancer Screening: Stool Based Tests (FOBT/FIT) 01/15/2022 Depression Screening 01/15/2022 Falls Risk Assessment 01/15/2022 Medicare Annual Wellness Visit 01/15/2022 Osteoporosis Screening (Bone Density Screening) 01/15/2022 Social Influencers of Health Screening 01/15/2022 COVID-19 Vaccine ( season) 2023 12/24/2021, 05/05/2020, 04/06/2020 Influenza Vaccine (#1) 2023 3, 11/25/2021, 10/27/2019, Additional history exists Hypertension/CHF/CAD Annual BMP Blood Test 03/02/2024 03/02/2023 Cholesterol Screening (Lipid Panel) 01/10/2027 01/10/2022 Hepatitis C Screening Completed 12/24/2012 Pneumococcal Vaccine: 50+ Years Completed 08/07/2019, 07/03/2015, 12/24/2012 HIB Vaccines Aged Out No longer eligi ble based on patient's age to complete this topic HPV Vaccines Aged Out No longer eligi ble based on patient's age to complete this topic Hepatitis A Vaccines Aged Out No long er eligible based on patient's age to complete this topic Hepatitis B Vaccines Aged Out No long er eligible based on patient's age to complete this topic IPV Vaccines Aged Out No longer eligi ble based on patient's age to complete this topic MMR Vaccines Aged Out No longer eligi ble based on patient's age to complete this topic Meningococcal ACWY Vaccine Aged Out N o longer eligible based on patient's age to complete this topic Meningococcal B Vacine Aged Out No lo nger eligible based on patient's age to complete this topic RSV Immunization Patients Under 20 months Aged Out No longer eligible based on patient's age to complete this topic Varicella Vaccines Aged Out No longer eligible based on patient's age to complete this topic Procedures Procedure Name Priority Date/Time Associated Diagnosis Comments ANNUAL BMP BLOOD TEST Routine 03/02/2023 LIPID PANEL Routine 01/10/2022 HEPATITIS C SCREENING Routine 12/24/2012 from Last 3 Months or Most Recently Relevant to Health Maintenance Results * Annual BMP Blood Test (03/02/2023) Annual BMP Blood Test Abstracted us Historical Provider MD HEALTH MAINTENANCE Final Result * (ABNORMAL) Lipid panel (01/10/2022) LDL/HDL Ratio 3 0 - 4 Triglycerides 107 0 - 150 mg/dL Cholesterol 276(A) 0 - 200 mg/dL HDL 90 >=40 mg/dL LDL Cholesterol 165(A) 0 - 100 mg/dL Blood Venous blood specimen / Unknown Historical Provider LAB BLOOD ORDERABLES Jayda l Result * Hepatitis C Screening (12/24/2012) Hepatitis C Screening Abstracted Historical Provider HEALTH MAINTENANCE Final Result from Last 3 Months or Most Recently Relevant to Health Maintenance Insurance MEDICARE [employer]AN Advance Directives Documents on File Type Date 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 Health Care Decision (hx) 02/10/2017 AD GUTIÉRREZ DIRECTIVE Health Care Decision (hx) 02/10/2017 AD GUTIÉRREZ DIRECTIVE Health Care Decision (hx) 02/10/2017 AD GUTIÉRREZ DIRECTIVE Health Care Decision (hx) 02/10/2017 AD GUTIÉRREZ DIRECTIVE Health Care Decision (hx) 02/10/2017 AD GUTIÉRREZ DIRECTIVE Health Care Decision (hx) 02/10/2017 AD GUTIÉRREZ DIRECTIVE Health Care Decision (hx) 02/10/2017 AD GUTIÉRREZ DIRECTIVE Health Care Decision (hx) 02/10/2017 AD GUTIÉRREZ DIRECTIVE Health Care Decision (hx) 02/10/2017 AD GUTIÉRREZ DIRECTIVE Health Care Decision (hx) 02/10/2017 AD GUTIÉRREZ DIRECTIVE Health Care Decision (hx) 02/10/2017 AD GUTIÉRREZ DIRECTIVE Health Care Decision (hx) 02/10/2017 AD GUTIÉRREZ DIRECTIVE Health Care Decision (hx) 02/10/2017 AD GUTIÉRREZ DIRECTIVE Health Care Decision (hx) 02/10/2017 AD GUTIÉRREZ DIRECTIVE Care Teams Car Dropper Relationship Specialty Start Date End Date Rickie Simpson MD [address] [place] [address] PCP - General Internal Medicine 03/12/24
== END 2024-04-19 12:04 | disposition home or self-care (01) ==
PROVIDERS: PCP Internal Medicine; Visit Provider Hospitalist
DX: J44.0 Chronic obstructive pulmonary disease with (acute) lower respiratory infection (principal); J96.11 Chronic respiratory failure with hypoxia; R91.8 Other nonspecific abnormal finding of lung field; F51.01 Primary insomnia
CPT/HCPCS: 99214

== ENCOUNTER → 2024-04-19 11:24 | Outpatient (BNVA) | payer OTHER, SELFPAY | PROVIDERS: PCP Physician Assistant; Visit Provider Hospitalist | DX: J44.0 Chronic obstructive pulmonary disease with (acute) lower respiratory infection (principal); J96.11 Chronic respiratory failure with hypoxia; R91.8 Other nonspecific abnormal finding of lung field; F51.01 Primary insomnia | CPT/HCPCS: 99212 ==

== ENCOUNTER 2024-10-24 10:58 | Outpatient (REF) | payer OTHER, SELFPAY ==
[2024-10-24 12:12] LABS: MANUAL DIFF FLAG NO
[2024-10-24 13:44] LABS: Hematocrit 26.2 % (37.0-47.0); Hemoglobin 7.3 g/dl (12.0-16.0); Imm Gran Abs Auto 0.02 X10*3/uL (0.00-0.03); Imm Gran Pct Auto 0.3 % (0.0-0.4); Lymphocytes Absolute Auto 1.5 X10*3/uL (1.2-4.9); Mean Corpuscular HGB Conc 27.9 g/dl (31.0-35.0); Mean Corpuscular Hemoglobin 22.1 pg (27.0-33.0); Mean Corpuscular Volume 79.4 fL (80.0-98.0); NRBC Abs Auto 0.000 X10*3/uL (0.0-0.012); NRBC Pct Auto 0.0 /100WBC (0.0-0.2); Platelet Count 391 X10*3/uL (160-400); Red Blood Count 3.30 X10*6/uL (4.20-5.50); White Blood Count 7.2 X10*3/uL (4.8-10.8)
[2024-10-24 14:07] LABS: Anion Gap 10 (12-20); Blood Urea Nitrogen 19 mg/dL (9-16); Calcium 9.1 mg/dL (8.4-10.2); Carbon Dioxide 34 mmol/L (22-29); Chloride 103 mmol/L (96-108); Estimated Glomerular Filt Rate > 60; Potassium 3.9 mmol/L (3.3-5.1); Sodium 143 mmol/L (135-145)
== END 2024-10-24 10:59 | disposition home or self-care (01) ==
LOC: HO.LAB 10:58
PROVIDERS: PCP Internal Medicine; Visit Provider Hospitalist
DX: J44.0 Chronic obstructive pulmonary disease with (acute) lower respiratory infection (principal); J96.11 Chronic respiratory failure with hypoxia; F51.01 Primary insomnia; R91.8 Other nonspecific abnormal finding of lung field; D64.9 Anemia, unspecified; Z79.899 Other long term (current) drug therapy; Z87.891 Personal history of nicotine dependence
CPT/HCPCS: 36415; 80048; 85025; 99212

== ENCOUNTER 2024-10-24 10:58 | Outpatient (AMB) | payer OTHER, SELFPAY ==
--- NOTE | 2024-10-24 11:16 | A.OFFVIS_ITS ---
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 She has currently been follow-up at the lung cancer screening program. Currently receiving Advair and also Spiriva. Having issues with hoarseness. She does have a rescue inhaler which is Combivent. She also has a nebulizer. She has not had any recent exacerbations. Over the only issue is to hoarseness a comes and goes. Denies any thrush and she reads as well. She was supposed to start pulmonary rehab but she has been dealing with other active medical issues including her wrist but still hurting her and she cannot use it well. We talked about potentially I am doing online pulmonary rehab which should be very helpful for her at this time. She continues to be on azithromycin for her chronic bronchitis. This medications have been very effective. She had an EKG done by Cardiology a week ago and per report was okay. She was then the 500 mg dose but with the hope of bring it down to 250 when she is doing better. with increasing symptoms the patient will have an x-ray today. If the x-rays abnormal consider repeating the CT scan sooner. 10/17/2022 the patient is here for pulmonary follow-up visit. The patient overall has been doing well. She continues on her respiratory therapy. She did have to be admitted briefly to [facility] after developing atrial fibrillation with rapid ventricular response. She did talk about the complex of the cardiac and pulmonary medications and also the beta affect potentially causing her increase tachycardia and palpitations. Therefore will go ahead and switch are viewed oral to levo albuterol to see if this provides some degree of stability. In the meantime she did have a CT scan of the chest back in March 2022 at [facility] demonstrating her pulmonary nodules have been stable and also slightly decreasing in size. She is participating in the lung cancer screening program and she is scheduled to have a repeat CT scan coming up soon. The patient typically develops increasing chest congestion and does well on the azithromycin over the winter months. Although, she is on antiarrhythmic agents and patient is aware that taking antiarrhythmic agents and azithromycin macrolide therapy can resulting worsening QT prolongation. She states that she done before she is tolerating it well. Therefore I did request she get an EKG upon starting the medicine and we can also have serial EKGs to make sure that there is stable QT intervals. 04/17/2023 the patient is here for a pulmonary follow-up visit. The patient has been doing fair. She tried the Xopenex but it did not help her breathing as much as the Combivent. Therefore she went back on the Combivent. I did explain to her that if her atrial fibrillation is acting up with increased heart rate then she may want to just use levalbuterol during those episodes. Meantime she continues on high-dose Trelegy. She has not on prednisone which is reassuring. She also has nebulized therapy including budesonide that are recent to the pharmacy. She will be stopping the macrolide therapy this month. Clinically she is doing well from a respiratory status. She did have a recent CT scan of the chest done at [facility] which demonstrated a new pulmonary nodule. She was seen by thoracic surgery and they recommended a CT scan in 3 months time. Indeed the patient is high risk for any diagnostic interventions. She has advanced respiratory failure. Would not advise her undergoing any type of biopsy. However, the nodule appears to be concerning his increasing size then would consider stereotactic radiation. For now will just have to wait for the repeat CT scan which is planned for July of this year. 11/28/2023 the patient is here for a pulmonary follow-up visit. Since we last spoke she had a fall and she fractured her right hip. She was admitted to [facility] and then discharged over to [facility]. There she received therapy. She is now back at using a walker although she is very limited because of pain. Breathing chavez she is doing okay. Because of all the issues going on the patient was not able to get her CT scan at [facility]. She does have 1 nodule that has been concerning in appearance. She had to cancel her CT scan. She is going to wait another month or so to receive physical therapy and she is going to call to reschedule the CT scan. If she has any issues she can always call here and I can order it for her. The patient will continue her current respiratory therapy. Her oxygenation has actually been better. She had been able to tolerate 2 L at rest and 3 L with activity with a good oxygenation. Has not had to use the higher levels of oxygen which is reassuring. At this point the patient is doing well will plan to follow-up in April. If she has any issues prior to that she will call for an earlier assessment. 04/19/2024 the patient is here for pulmonary follow-up visit. She is still under the weather. She has been sick for about 2 weeks. She was having significant chest congestion nasal congestion and cough. In although she is feeling a little better but she still having a lot of congestion difficulty expectorating. She is using Mucinex partial response. In addition to that she was found to have a new pulmonary nodule that has to be followed closely. She is following closely also with thoracic surgery. Her CT scan scheduled for next week. Therefore will go ahead and treat her for a lower respiratory infection to make sure with clear air as much as possible from her underlying acute illness to make sure that we see proper findings on the CT scan. She continues with the oxygen therapy with good effect. Continues with inhaler therapy also with good effect. Will plan to follow-up sometime in the fall. If she develops any worsening symptoms she will call. In the meantime will request her CT scan from next week. 10/24/2024 the patient is here for pulmonary follow-up visit. Seems to be more short of breath in a little unsteady on her feet and has not been herself lately. Even with minimal activities of daily living the patient has been very short in the family has been uncomfortable leaving her on her own. The patient has been using her oxygen as prescribed. She continues on her respiratory therapy that had been very effective for her. She also continues on a small dose of prednisone. As far as additional therapies we can consider adding Ohtuvayre as a way to improve her respiratory capacity. We did have her undergo blood work. Her blood gas was reassuring with a normal pCO2. However, the patient is found to be significantly anemic with a hemoglobin of 7.3. I did call the patient and the daughter and explained to them my concerns. The patient has had an issue with anemia previously. She has a hard time tolerating arm. The patient indeed may need to get a blood transfusion. Will have her get additional blood work on Monday. They are also going to monitor closely her symptoms. If she gets any worse shortness of breath and he had worsening dizziness or just any worse constitutional symptoms then the patient needs to go to the ER. I have put in the urgent referral to Hematology as she may benefit from iron infusions if not a blood transfusion. I also send a report to her primary care doctor in case they want to pursue different avenues of treatment. For now she will continue with the current respiratory therapy. [facility] Medical History (Updated 10/24/24 @ 21:48 by Raffaele Foreman MD) Anemia Insomnia Pulmonary nodules Chronic respiratory failure COPD (chronic obstructive pulmonary disease) Social History Patient Tobacco Use Status: Former Tobacco user Tobacco use type: Cigarette Years Smoked: 54 years Review of Systems Const Reports daytime sleepiness, Reports difficulty sleeping and Denies night sweats ENT Denies change in voice, Denies lip swelling, Denies mouth pain, Reports nasal congestion, Reports nasal discharge and Denies tongue swelling Card Denies chest pain, Reports palpitations, Reports dyspnea and Reports dyspnea on exertion Resp Reports cough, Reports dyspnea and Reports dyspnea on exertion GI Denies abdominal pain Musc Reports as per HPI, Reports abnormal gait, Reports arthralgias, Reports joint swelling, Reports muscle weakness and Reports stiffness Neuro Denies Neuro-related abnormal movements and Reports abnormal gait Psych Denies no additional complaints Endo Reports palpitations Agustín/Lymph Denies easy bleeding and Denies lymphadenopathy Aller/Immun Denies lip swelling and Denies tongue swelling Physical Exam Vital Signs: Last Vital Signs Pulse 82 10/24/24 11:18 BP 90/50 L 10/24/24 11:18 Pulse Ox 95 10/24/24 11:18 Oxygen Delivery Method Nasal Cannula 10/24/24 11:18 Oxygen Flow Rate 3 10/24/24 11:18 Assessment & Plan Assessment & Plan (1) COPD (chronic obstructive pulmonary disease): Code(s): J44.9 - Chronic obstructive pulmonary disease, unspecified Category: Medical Qualifiers: COPD type: COPD with acute lower respiratory infection Qualified Code(s): J44.0 - Chronic obstructive pulmonary disease with (acute) lower respiratory infection (2) Chronic respiratory failure: Comment: Due to chronic stable COPD Code(s): J96.10 - Chronic respiratory failure, unspecified whether with hypoxia or hypercapnia Category: Medical Qualifiers: Respiratory failure complication: hypoxia Qualified Code(s): J96.11 - Chronic respiratory failure with hypoxia (3) Pulmonary nodules: Code(s): R91.8 - Other nonspecific abnormal finding of lung field Category: Medical (4) Insomnia: Code(s): G47.00 - Insomnia, unspecified Category: Medical Qualifiers: Insomnia type: primary Qualified Code(s): F51.01 - Primary insomnia (5) Anemia: Code(s): D64.9 - Anemia, unspecified Category: Medical Qualifiers: Anemia type: unspecified type Qualified Code(s): D64.9 - Anemia, unspecified Plan SPoke to pt and family. Appears to have some chronicity. No evidence of active bleeding. She will go to the ED if worsening symptoms or any evidence of active bleeding. Requesting urgent hematology referral. Repeat bloodwork on Monday. Labs sent to PCP as they know about the pt's h/o anemia continue Trelegy 200mcg continue combivent Continue nebulized therapy start Ohtuvayre nebs Continue oxygen supplementation Xopenex as meeded CT chest at [facility] 2025 RADS 2 F/U 2 months Orders: Orders Venous Blood Gas Today J44.0 - Chronic obstructive pulmonary disease with (acute) lower respiratory infection Complete Blood Count Auto Diff Today J44.0 - Chronic obstructive pulmonary disease with (acute) lower respiratory infection Basic Metabolic Panel Today J44.0 - Chronic obstructive pulmonary disease with (acute) lower respiratory infection UA CC w/rflx Micro + Cult Today J44.0 - Chronic obstructive pulmonary disease with (acute) lower respiratory infection Medications: New umeclidinium 62.5 mcg/actuation (Incruse Ellipta) 1 inh inhalation DAILY 3 ea 3RF 90 days J44.9 - Chronic obstructive pulmonary disease, unspecified, J45.909 - Unspecified asthma, uncomplicated Refilled albuterol sulfate 2.5 mg (3 mL) inhalation TID 810 mL 3RF 90 days J44.9 - Chronic obstructive pulmonary disease, unspecified Trelegy Ellipta 200-62.5-25 mcg (acumzfnzhba-rjyilpvlm-mmdtizkf) 1 inh inhalation DAILY 3 ea 3RF 90 days NS ipratropium-albuterol 20-100 mcg/actuation 1 puff inhalation QID 3 ea 3RF 90 days Coding Level of Care Code Est Pt Level 5 (63394) Complex EM visit Add On G2211 Diagnoses Chronic obstructive pulmonary disease with acute lower respiratory infection J44.0 COPD type: COPD with acute lower respiratory infection Chronic respiratory failure with hypoxia J96.11 Respiratory failure complication: hypoxia Pulmonary nodules R91.8 Primary insomnia F51.01 Insomnia type: primary Anemia, unspecified type D64.9 Anemia type: unspecified type Time Spent (min) 60
[2024-10-24 11:18] VITALS: BP 90/50; PULSE 82; O2SAT 95
--- OUTSIDE RECORDS SUMMARY | 2024-10-24 13:05 | XMS_ITS | Clinical Summary ---
Author Organization [facility] [address] [facility] Address [address] [place] [address] Phone Care Team Providers Care Runway Model Name Role Phone Rickie Simpson MD Primary Care Provider Allergies Active Allergy Reactions Criticality Noted Date [...] per day (dose unknown) - Oral Active amoxicillin-cla vulanate (AUGMENTIN) 875-125 mg per tablet Take 1 tablet by mouth 2 (two) times a day. for 10 days 5 Active doxycycline (VIBRAMYCIN) 100 mg capsule Take 1 capsule (100 mg total) by mouth 2 (two) times a day. 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 Last seen 06/14/2021. Plan to continue Trelegy 200 mcg, continue nebulized therapy, stop azithromycin MWF. No theophylline due to arrhythmias. Continue oxygen supplementation. Online pulmonary rehab. Start Xopenex. Continue budesonide. Referred to [place] for evaluation for lung volume reduction interventions. Follow-up in 4 to 6 months. Oxygen dependent 10/17/2016 Vitamin D deficiency 02/17/2016 Anxiety 07/03/2015 Lung nodules 12/24/2012 Overview (11/17/2023): Seeing Dr. Lara and being followed Last Assessment & Plan: Ms. Kraus is a 78 y/o female who is being followed by the [facility] with LDCT scans for pulmonary nodules. [...] to her next visit. COPD (chronic obstructive pu lmonary disease) (CMS/HCC V24, CMS/HCC V28) 11/25/2011 Osteoporosis 06/19/2008 Thyroid nodule 06/19/2008 Overview (11/17/2023): August 2018 US: CONCLUSIONS: Bilateral tiny thyroid nodules without suspicious features. Atrial fibrillation (CMS/HCC V24, CMS/HCC V28) 0 10/02/2007 Overview (11/17/2023): Last Assessment & Plan: In sinus rhythm, rate is controlled on diltiazem, rhythm is controlled on Rythmol. She is anticoagulated on Eliquis. She understands risks and benefits of anticoagulation and wished to continue. EKG is stable. Lumbago 10/02/2007 Overview (11/17/2023): Failed surgery. Patient is follow and [facility]. She is prescribe hydrocodone/APAP [...] PROCEDURE: HISTORICAL BACK SURGERY HAND SURGERY PROCEDURE: RI UNLISTED PROCEDURE HANDS/FINGERS; COMMENT: to repair a nerve SHOULDER SURGERY PROCEDURE: RI UNLISTED PROCEDURE SHOULDER Medical History Medical History Date Comments Lumbago 10/02/2007 DX:Lumbago Neuropathy 10/02/2007 DX:Neuropathy Atrial fibrillation ([facility] V24, [facility] V28) 10/02/2007 DX:Atrial fibrillation ([facility]) Osteoporosis 06/19/2008 DX:Osteoporosis Anxiety 07/03/2015 DX:Anxiety COPD (chronic obstructive pu lmonary disease) ([facility] V24, [facility] V28) 11/25/2011 DX:COPD (chronic o bstructive pulmonary disease) ([facility]) History of squamous cell car cinoma of [...] Refusing colonoscopy and mammogram, see notes from [id number]. Lung nodules were stable, no additional f/u was recommended by Dr Shelbie Smart for repeat thyroid ultrasound (recommended 1 year [...] Smoking Tobacco: Former Cigarettes Smokeless Tobacco: Never Tobacco Cessation:Counseling Given: Not Answered Alcohol Use Standard Drinks/Week Comments Yes 0 [...] Sign Reading Time Taken Comments Blood Pressure 110/53 05/22/2024 11:36 AM EDT Pulse 95 05/22/2024 11:36 AM EDT Temperature 36.6 C (97.9 F) 05/22/2024 11:36 AM EDT Respiratory Rate 19 05/22/2024 11:36 AM EDT Oxygen Saturation 96% 11/08/2023 3:09 PM EDT 4 L O2 Inhaled Oxygen Concentration - - Weight 39.5 kg (87 lb) 05/22/2024 11:36 AM EDT Height 160 cm (5' 3 ) 05/22/2024 11:36 AM EDT Body Mass Index 15.41 05/22/2024 11:36 AM EDT Plan of Treatment Health Maintenance Due Date Last Done Comments DTaP,Tdap,and Td Vaccines (1 - Tdap) 1964 Colorectal Cancer Screening: Stool Based Tests (FOBT/FIT) 01/15/2022 Falls Risk Assessment 01/15/2022 Medicare Annual Wellness Visit 01/15/2022 Osteoporosis Screening (Bone Density Screening) 01/15/2022 Social Influencers of Health Screening 01/15/2022 Depression Screening 02/07/2024 Hypertension/CHF/CAD Annual BMP Blood Test 03/02/2024 03/02/2023 COVID-19 Vaccine ( season) 2024 11/14/2022, 12/24/2021, 06/28/2021, Additional history exists Influenza Vaccine (#1) 2024 , 10/24/2022, 11/25/2021, Additional history exists Cholesterol Screening (Lipid Panel) 01/10/2027 01/10/2022 Hepatitis C Screening Completed 12/24/2012 Pneumococcal Vaccine: 50+ Years Completed 08/07/2019, 07/03/2015, 12/24/2012 RSV Immunization Adult Patients Completed 07/28/2023 Zoster Vaccines Completed 12/27/2023, 08/21/2023 HIB Vaccines Aged Out No longer eligi [...] age to complete this topic Meningococcal B Vaccine Aged Out No l onger eligible based on patient's age to complete [...] Results * Annual BMP Blood Test (03/02/2023) Pathologist [facility] Annual BMP Blood Test Abstracted [facility] Provider HEALTH MAINTENANCE Final Result * (ABNORMAL) Lipid panel (01/10/2022) [facility] LDL/HDL Ratio 3 0 - 4 Triglycerides 107 0 - 150 mg/dL Cholesterol 276(A) 0 - 200 mg/dL HDL 90 >=40 mg/dL LDL Cholesterol 165(A) 0 - 100 mg/dL Blood Venous blood specimen / Unknown [facility] Provider LAB BLOOD ORDERABLES Jayda l Result * Hepatitis C Screening (12/24/2012) [facility] Hepatitis C Screening Abstracted [facility] Provider HEALTH MAINTENANCE Final Result from Last 3 Months or Most Recently Relevant to Health Maintenance Insurance MEDICARE [employer]AN Advance Directives Documents on File Type Date Recorded 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
== END 2024-10-24 11:55 | disposition home or self-care (01) ==
PROVIDERS: PCP Internal Medicine; Visit Provider Hospitalist
DX: J44.0 Chronic obstructive pulmonary disease with (acute) lower respiratory infection (principal); J96.11 Chronic respiratory failure with hypoxia; R91.8 Other nonspecific abnormal finding of lung field; F51.01 Primary insomnia; D64.9 Anemia, unspecified
CPT/HCPCS: 99215

== ENCOUNTER 2024-10-26 10:10 | Outpatient (REF) | payer OTHER, SELFPAY ==
--- OUTSIDE RECORDS SUMMARY | 2024-10-26 10:14 | XMS_ITS | Clinical Summary ---
Author Organization [facility] [address] [facility] Address [address] [place] [address] Phone Care Team Providers Care Farm Management Agent Name Role Phone Rickie Simpson MD Primary Care Provider [phone] Allergies Active Allergy Reactions Criticality Noted Date [...] Stage 3a chronic kidney dise ase (CKD) ([facility] V24, 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 V24, [facility] V28) 03/08/2017 Overview (11/17/2023): Following [place] pul[facility]ology. Last seen 06/14/2021. Plan to continue Trelegy 200 mcg, continue nebulized therapy, stop azithromycin MWF. No theophylline due to arrhythmias. Continue oxygen supplementation. Online pulmonary rehab. Start Xopenex. Continue budesonide. Referred to [place] for evaluation for lung volume reduction interventions. Follow-up in 4 to 6 months. Oxygen dependent 10/17/2016 Vitamin D deficiency 02/17/2016 Anxiety 07/03/2015 Lung nodules 12/24/2012 Overview (11/17/2023): Seeing Dr. Lara and being followed Last Assessment & Plan: Ms. Kraus is a 78 y/o female who is being followed by the [facility] with LDCT scans for pulmonary nodules. She [...] (11/17/2023): Failed surgery. Patient is follow and [facility]. She is prescribe hydrocodone/APAP [...] PROCEDURE: HISTORICAL BACK SURGERY HAND SURGERY PROCEDURE: ND UNLISTED PROCEDURE HANDS/FINGERS; COMMENT: to repair a nerve SHOULDER SURGERY PROCEDURE: ND UNLISTED PROCEDURE SHOULDER Medical History Medical History Date Comments Lumbago 10/02/2007 DX:Lumbago Neuropathy 10/02/2007 DX:Neuropathy Atrial fibrillation ([facility] V24, [facility] V28) 10/02/2007 DX:Atrial fibrillation ([facility]) Osteoporosis 06/19/2008 DX:Osteoporosis Anxiety 07/03/2015 DX:Anxiety COPD (chronic obstructive pu lmonary disease) ([facility] V24, [facility] V28) 11/25/2011 DX:COPD (chronic o bstructive pulmonary disease) ([facility]) History of squamous cell car cinoma [...] Refusing colonoscopy and mammogram, see notes from [id number]. Lung nodules were stable, no additional f/u [...] * Annual BMP Blood Test (03/02/2023) Pathologist [facility] Annual BMP Blood Test Abstracted [facility] Provider HEALTH MAINTENANCE Final Result * (ABNORMAL) Lipid panel (01/10/2022) [facility] LDL/HDL Ratio 3 0 - 4 Triglycerides 107 0 - 150 mg/dL Cholesterol 276(A) 0 - 200 mg/dL HDL 90 >=40 mg/dL LDL Cholesterol 165(A) 0 - 100 mg/dL Blood Venous blood specimen / Unknown [facility] Provider LAB BLOOD ORDERABLES Jayda l Result * Hepatitis C Screening (12/24/2012) [facility] Hepatitis C Screening Abstracted [facility] Provider HEALTH MAINTENANCE Final Result from Last 3 Months or Most Recently Relevant to Health Maintenance Insurance MEDICARE FAMILY [employer] PLAN Advance Directives Documents on File Type Date Recorded Patient Pediatric Cns Expl anation Health Care Decision (hx) 02/10/2017 [...] (hx) 02/10/2017 AD GUTIÉRREZ DIRECTIVE Care Teams Farm Management Agent Relationship Specialty Start Date End Date Rickie Simpson MD [address] [place] [address] PCP - General Internal Medicine 03/12/24
[2024-10-26 10:58] LABS: MANUAL DIFF FLAG NO
[2024-10-26 11:21] LABS: Hematocrit 25.5 % (37.0-47.0); Hemoglobin 7.1 g/dl (12.0-16.0); Imm Gran Abs Auto 0.02 X10*3/uL (0.00-0.03); Imm Gran Pct Auto 0.3 % (0.0-0.4); Lymphocytes Absolute Auto 1.3 X10*3/uL (1.2-4.9); Mean Corpuscular HGB Conc 27.8 g/dl (31.0-35.0); Mean Corpuscular Hemoglobin 22.4 pg (27.0-33.0); Mean Corpuscular Volume 80.4 fL (80.0-98.0); NRBC Abs Auto 0.000 X10*3/uL (0.0-0.012); NRBC Pct Auto 0.0 /100WBC (0.0-0.2); Platelet Count 379 X10*3/uL (160-400); Red Blood Count 3.17 X10*6/uL (4.20-5.50); White Blood Count 5.8 X10*3/uL (4.8-10.8)
[2024-10-26 12:00] LABS: Appearance Urine Clear; Glucose Urine UA Negative (Negative); PH 6.5 (5.0-9.0); Specific Gravity - Urine 1.020 (1.005-1.025)
[2024-10-26 12:07] LABS: Ferritin 11 ng/mL (10-250); Iron 16 mcg/dL (30-160); Percent Iron Saturation 5 % (15-50); Total Iron Binding Capacity 340 mcg/dL (228-428); Unsaturated Iron Binding 324 ug/dL
[2024-10-26 12:21] LABS: Folate 8.6 ng/mL (> or = 4.0); Vitamin B12 249 pg/mL (200-900)
[2024-10-26 14:17] LABS: VBG HCO3 34 mmol/L (22-26)
[2024-10-26 14:18] LABS: Venous Blood Gas Refer to POC result
== END 2024-10-26 10:11 | disposition home or self-care (01) ==
LOC: HO.LAB 10:10
PROVIDERS: PCP Internal Medicine; Visit Provider Hospitalist
DX: Z01.84 Encounter for antibody response examination (principal); J44.0 Chronic obstructive pulmonary disease with (acute) lower respiratory infection; D64.9 Anemia, unspecified
CPT/HCPCS: 36415; 81003; 82607; 82728; 82746; 82803; 83540; 85025; 86850; 86900; 86901

== ENCOUNTER 2025-01-31 11:04 | Outpatient (AMB) | payer OTHER, SELFPAY ==
--- OUTSIDE RECORDS SUMMARY | 2025-01-31 11:06 | XMS_ITS | Data Portability ---
Author Organization [place] - [facility], [facility] Address [address] [place] [address] Care Team Providers Care Chief Growth Officer Name Role Phone Sofiya Simspon Primary Care Provider Assessment No assessment recorded. Plan of Treatment Reminders Order Date Submit Date Provider Name Organization Details Last Modified By Last Modified Time Details Appointments None recorde d. Lab None recorde d. Referral physica l therapi st referra l 2023 11:51: 46 024 Mayra guerra PA-C Not available Mayra Hess PA-C 4 13:09:[address] st referra l 2023 11:17: 47 024 Mayra guerra PA-C Not available Mayra Hess PA-C 4 13:36:38 Procedures None recorde d. Surgeries None recorde d. Imaging XR, femur, 2 or more view 2024 10:12: 41 025 Mayra guerra PA-C [facility] [address], [place], [address], Mayra Hess PA-C 5 13:08:16 XR, femur, 2 or more view 2024 10:06: 33 025 Mayra guerra PA-C [facility] [address], [place], [address], Mayra Hess PA-C 5 16:31:25 XR, femur, 2 or more view 2023 11:25: 57 024 Mayra guerra PA-C [facility] [address], [place], [address], Mayra Hess PA-C 4 13:09:37 XR, femur, 2 or more view 2023 10:40: 08 024 Mayra guerra PA-C [facility] [address], [place], [address], Mayra Hess PA-C 4 13:36:38 XR, shoulde r, 2 or more view 2023 10:33: 09 024 Tonia Downing MD [facility] [address], [place], [address], ALYX MESSENGER 4 07:23:41 MedicationOrders None recorde d. VaccineOrders None recorde d. Patient TargetsNo targets recorded. Patient InstructionsNo instructions recorded. Reason for Referral Physical Therapist Referral for Closed fracture of neck of femur S/P Right Femur ORIF 10/11/23 Hip, knee, ankle ROM; WBAT, gait training, Strengthen, HEP, modalities as appropriate 1-2 per week, 4-6 weeks Referring Physician: Mayra Hess, Orthopedic Surgery, [id number] Encounter Date: 12/25/2023 Physical Therapist Referral for Closed fracture of neck of femur S/P right femur ORIF 10/11/23 Hip, knee, ankle ROM; WBAT, gait training, HEP, modalities as appropriate 2-3 per week, 4-6 weeks Referring Physician: Mayra Hess, Orthopedic Surgery, [id number] Encounter Date: 11/13/2023 Results Created Date Observation Date Name Description Value Unit Range Abnormal Flag Specimen Type Note LastModifiedBy Organization Detail LastModifiedTime 08/17/2023 08/17/2023 shoulder 4 view [email or web address]=vhHcKykHF4uBaqAPm3m%0PRFgoXtegi9goam%0Be7FVs3 wxUgaC5kWiUBvglGl6CnHUKnLqsPPA2sMrBXmmi47i6929IP4Pik18ZGcjkYR3wl42%3D Not Available [facility] , [address] [address] , [place], [place] , [address] , 08/17/2023 10:39:01 08/17/2023 08/17/2023 shoulder 4 view [email or web address]=khAxSsuVE3fQlxDUd3l%5VGClySmqgc7ckhv%7Mt9GZx9 dgHyrT4wOjOXidtPl3ZyYGUnVjvFDM0eNhUBmos56g3655MZ2Wib00IXcrpWP9op91%3D Not Available [facility] , [address] [address] , [place] , [address], , 08/17/2023 10:39:04 11/13/2023 11/13/2023 femur 2 view [email or web address]?Encrypted=jjOqZjnOJ2jIgvSMo5o%4HZAozXrwtf8fwto%7Ww5WAf0 wyChpZ0rGzQRyslXr9FkVLMcLajSSM3pNxSUjog19f5167UF1Cmq44ODynlIhNzzBmR Not Available [facility] , [address] [address] , [place] , [address], , 11/13/2023 10:55:59 11/13/2023 11/13/2023 femur 2 view [email or web address]=flBzOakDI8kKmpBDj2y%0MIQdhRxqjl5fepk%8Pf6MWk9 xsHznG0eDnDJduaTw4YrEXChDoaYNM9gHeSFnsj48e7559WN9Zsk48LEewmHiVuqMoA Not Available [facility] , [address] [address] , [place], [place] , [facility], , 11/13/2023 10:56:01 12/25/2023 12/25/2023 femur 2 view [email or web address]?Encrypted=euWeDqtFR3jOwyJDz0w%3BHEnyYvjnw7qhnv%0Lu6OGt6 khXdfT7qOuDWnerNt4RcUXTcNziSTH3eIjIAtpt07m7343OJ2SexMkUTqLvHnLoeRpE Not Available [facility] , [address] [address] , [place] , [address], , 12/25/2023 11:37:20 12/25/2023 12/25/2023 femur 2 view [email or web address]=xiSdXhdJD0wIilBRs9q%4CUXjuVqosk7zjwz%2Bn8SDx1 gjJnuB9xVhMJletXv1OnUUSuByxNWP4iAeRAlbf41z1589DS6RgoLvYHmUlVlSasFgZ Not Available [facility] , [address] [address] , [place] , [address], , 12/25/2023 11:37:22 02/21/2024 02/21/2024 femur 2 view [email or web address]=rkAmGkkTX0vHvtEJf5d%5SRPtoXqtlw6bzxu%6Ri1SJo9 lbXezR6uLuDAkifXa5BdJRXkHzlZAZ6dSmTLkup12r6119GL2Jih7qVA3MuXcWgsWvH Not Available [facility] , [address],[facility] [address] , [place] , [address], [place] , 02/21/2024 10:16:27 02/21/2024 02/21/2024 femur 2 view [email or web address]=dpInCdtAL0zAitRYj5k%0VOIvwEacpi9hffj%4Bs3ZUp4 qjAwcS8vPoZNencIi4DtWPJoKysKAZ4nWrZWiwk26z3491UN4Doy3jLD1MgUtGuuWrM Not Available [facility] , [address],[facility] [address] , [place] , [address], , 02/21/2024 10:16:29 05/29/2024 05/29/2024 femur 2 view [email or web address]?Encrypted=iqLpCskJE5qUpzQXg6w%9FCLslUgjwl5rezi%1Wt9TJq2 goGlxR9bSjSIuetVo5ClSILcNmhTNQ3mPjLActv03r8605GI7Pbvz7NSrkuAnNzoPfQ Not Available [facility] , [address],[facility] [address] , [place] , [address], , 05/29/2024 10:22:05 05/29/2024 05/29/2024 femur 2 view [email or web address]?Encrypted=aaTvMmgVX3uInlFMt8j%6XJBskUcjwc5sazc%6My2VKt3 zpWubJ8iAoPNlbrUs8GhNMSaGrwKJZ8wTjKJleo16k2157RM2Jugz2MQlldTiVzlBrS Not Available [facility] , [address],[facility] [address] , [place] , [address], , 05/29/2024 10:22:06 Result Notes Documentation Provider Name and Address Organization Details Recorded Time Xr, Shoulder, 2 Or More View : [email or web address]? Encrypted=ugGxVhlWU6gFwkR Uv6g%1ACQctXrqvj2xzdl%2Fg 8SYt6qwKbkB7nBrDAuqyJb1Ft XNXvXctKOG1cUxQDyxg82h648 3KR5Tcq63KMmvyGK4eq89%3D Not Available [facility] 08/17/2023 10:3 9:01 Xr, Shoulder, 2 Or More View : [email or web address]? Encrypted=deWbGhzFT5rKrrT Uv6g%0CJQvyQhlhr1ntnt%2Fg 2RDq8yfNxiD0pKqWRjzgAc9Kt KWBzJutTZD8oEbRMfam47j651 9PB1Ghl78WZjeoBA2hq77%3D Not Available [facility] 08/17/2023 10:3 9:04 Xr, Femur, 2 Or More View : [email or web address]? Encrypted=qlVuPyfNF4wRloL Uv6g%8PKDnwPczew3qema%2Fg 7KEc2ppTghG4fZtFLrhuQe0Gp LFPwHjnGGS7nKuLKier49c570 9IK6Sbm87KDrphJqRtwNwA Not Available [facility] 11/13/2023 10:55: 59 Xr, Femur, 2 Or More View : [email or web address]? Encrypted=eqMzIjpZZ5wDbeG Uv6g%6IUKilGagdn1owcj%2Fg 9JPf1ucYguE5gZjJShghPs0Ge RLGvHjnFYT1vHxWYefo31z984 9VW6Ptn84PXsqeRbBmzOaE Not Available [facility] 11/13/2023 10:56: 01 Xr, Femur, 2 Or More View : [email or web address]? Encrypted=wlJhNzjIU3dBwdJ Uv6g%2PGDgaFvtwt5obpw%2Fg 2CWx4dlParY4pYuIQrzmTm8Ot VJMnAkpSLJ4xWhKIlzg16y143 5SX0UlzYmTByNlIpDaqRyS Not Available [facility] 12/25/2023 11:37: 20 Xr, Femur, 2 Or More View : [email or web address] Encrypted=nyOdIcyTW9mYuaD Uv6g%4PLPbuAqxzh8fnnn%2Fg 9PKz8txOffC3kVaSOfmiZz8Cx DPDnDfrADR5mQjBGprs12g805 2DD7JoaVgNXpRtSuRdtUwS Not Available [facility] 12/25/2023 11:37: 22 Xr, Femur, 2 Or More View : [email or web address]? Encrypted=vvEtSzbGD3zNbhT Uv6g%9YUWcgQpgtt2vumc%2Fg 7SDq9yiCdqG0lCxLSyudMd5Au WKAyJwlCTR4gLhEHeze52d181 8AA8Tul0wWN8XyFlXfwPwJ Not Available [facility] 02/21/2024 10:16: 27 Xr, Femur, 2 Or More View : [email or web address]? Encrypted=uaHyVcrTS9eQufK Uv6g%7YFSdgTusup9rahi%2Fg 1QFg8heHhoP4rXzHQwcbKo8Mt OBFgNvtQWI0qRpUYiqr92f536 0SR2Inw5iVG6WpFeZvsAiN Not Available [facility] 02/21/2024 10:16: 29 Xr, Femur, 2 Or More View : [email or web address]? Encrypted=vaCcOxbGX9oOfkE Uv6g%7DLHmhDnhpg0kjmy%2Fg 5DYv9fhWvgU0zCrCJogeXb6Jl PIKpVqyCVW1bArOWdsc53t310 8YV0Dyid7SBpigFrCgyUcO Not Available [facility] 05/29/2024 10:22: 05 Xr, Femur, 2 Or More View : [email or web address]? Encrypted=waZbOjbIO6kEhmW Uv6g%3OVJetWcget7egfx%2Fg 8PWv1kxDnkT4fQbECqxpEf2Ln GJPsBqeHCA3lDaAGiva52z356 9RZ4Nlhm7TAvxiUnJpeSzV Not Available [facility] 05/29/2024 10:22: 06 Problems Name Problem SNOMED Code Status Onset Date Resolution Date Notes Provider Name and Address Organization Details Recorded Time Closed fracture of neck of femur 428212423 Active 2023 JARRETT ESPARZA [facility] 4 10:39:36 Osteoarthri tis of right hip joint 4674046232339 07 Active 2023 Mayra guerra PA-C [address] [facility], [place], [address], [facility] 4 11:12:02 Problem Notes None recorded. Procedures Surgical History Date Name Laterality Status Provider Name and Address Organization Details Recorded Time 5 Hip Kenalog 1cc Injection, L/R completed Mayra Hess PA-C [address] [facility], [place], [address], [facility] 03/07/2024 11:40:01 4 Sports Shoulder completed Tonia Downing MD [address], [place], [address], [facility] 08/17/2023 11:16:23 Imaging Results Imaging Date Name Status LastModifiedBy Organiza tion Detail LastModifiedTime 08/17/2023 shoulder 4 view completed Not Available [facility] , [address] , [place] , [address], [place] , 08/17/2023 10:39:01 08/17/2023 shoulder 4 view completed Not Available [facility] , [address] , [place] , [address], [place] , 08/17/2023 10:39:04 11/13/2023 femur 2 view completed Not Available [facility] , [address] , [place] , [address], [place] , 11/13/2023 10:55:59 11/13/2023 femur 2 view completed Not Available [facility] , [address] , [place] , [address], [place] , 11/13/2023 10:56:01 12/25/2023 femur 2 view completed Not Available [facility] , [address] , [place] , [address], [place] , 12/25/2023 11:37:20 12/25/2023 femur 2 view completed Not Available [facility] , [address] , [place] , [address], [place] , 12/25/2023 11:37:22 02/21/2024 femur 2 view completed Not Available [facility] , [address] , [place] , [address], [place] , 02/21/2024 10:16:27 02/21/2024 femur 2 view completed Not Available [facility] , [address] , [place] , [address], [place] , 02/21/2024 10:16:29 05/29/2024 femur 2 view completed Not Available [facility] , [address] , [place] , [address], [place] , 05/29/2024 10:22:05 05/29/2024 femur 2 view completed Not Available [facility] , [address] , [place] , [address], [place] , 05/29/2024 10:22:06 Procedure Notes None recorded. Medical Equipment None Reported. Allergies Allergen ID Allergen Name Allergen Category Reaction Reaction Severity Criticality Documentation Date Start Date Code Code System Note Provider Name and Address Organization Details Recorded Time 681373 POLLEN EXTRACTS environme nt,medica tion Not available Not available Not available 08/17/2023 28727 6 RxNorm CHANDRA starr, [facility] 4 10:33:23 066039 house dust allergeni c extract environme nt,medica tion Not available Not available Not available 08/17/2023 22540 9 RxNorm CHANDRA starr [facility] 4 10:33:27 175527 codeine medicatio n Not available Not available Not available 08/17/2023 2670 RxNorm CHANDRA starr [facility] 4 10:33:30 881139 cat dander environme nt Not available Not available Not available [facility]17[facility] 4 10:33:46 Medications Name Authored On Sig Start Date Stop Date Status Note Indication Fill Status Repeat Number Dispense Quantity LastModified by Organization Details LastModified Time dulox etine 30 mg capsu le,de layed relea se 4 11:22:20 active Not Available Not availab le 0 Not Available Not Available [facility] 06/30/2023 11:22:20 leval buter ol 1.25 mg/3 mL solut ion for nebul izati on 4 11:22:20 active Not Available Not availab le 0 Not Available Not Available [facility] 06/30/2023 11:22:20 Xopen ex HFA 45 mcg/a ctuat ion aeros ol inhal er 4 11:22:20 active Not Available Not availab le 0 Not Available Not Available [facility] 06/30/2023 11:22:20 Eliqu is 5 mg table t 4 07:09:46 active Not Available Not availab le 0 Not Available Not Available [facility] 08/17/2023 07:09:46 loraz epam 1 mg table t 4 07:09:46 active Not Available Not availab le 0 Not Available Not Available [facility] 08/17/2023 07:09:46 mupir ocin 2 % topic al ointm ent 4 07:09:46 APPL Y TOPI CALL Y TO SURG ICAL SITE TWIC E KAREN Y FOR 10-1 4 DAYS OR UNTI L FULL Y HEAL ED active Not Available Not availab le 0 Not Available Not Available [facility] 08/17/2023 07:09:46 azith romyc in 250 mg table t 4 11:22:20 08/16 aborted Not Available Not availab le 0 Not Available CHANDRA COLEY [facility] 08/17/2023 10:35:24 diclo fenac 1 % topic al gel 4 11:22:20 08/16 aborted Not Available Not availab le 0 Not Available CHANDRA COLEY [facility] 08/17/2023 10:35:51 hydro codon e 5 mg-ac etami nophe n 325 mg table t 4 10:37:06 Take 1 tabl et ever y 6 hour s by oral rout e. active Not Available Not availab le 0 Not Available CHANDRA COLEY [facility] 08/17/2023 10:37:06 budes onide 0.5 mg/2 mL suspe nsion for nebul izati on 4 06:10:53 active Not Available Not availab le 0 Not Available Not Available [facility] 11/13/2023 06:10:53 Combi vent Respi mat 20 mcg-1 00 mcg/a ctuat ion solut ion for inhal ation 4 06:10:53 active Not Available Not availab le 0 Not Available Not Available [facility] 11/13/2023 06:10:53 dilti azem ER 120 mg table t,ext ended relea se 24 hr 4 06:10:53 active Not Available Not availab le 0 Not Available Not Available [facility] 11/13/2023 06:10:53 Lidoc mary Pain Relie f 4 % topic al patch 4 06:10:53 APPL Y 1 PATC H TOPI CALL Y TO THE SKIN EVER Y MORN ING active Not Available Not availab le 0 Not Available Not Available [facility] 11/13/2023 06:10:53 oxyco done 5 mg table t 4 06:10:53 TAKE 1 TABL ET BY MOUT H EVER Y 6 HOUR S NEED ED FOR BOY RE PAIN PART IALF ILL active Not Available Not availab le 0 Not Available Not Available [facility] 11/13/2023 06:10:53 propa fenon e 225 mg table t 4 06:10:53 active Not Available Not availab le 0 Not Available Not Available [facility] 11/13/2023 06:10:53 Trele gy Ellip ta 200 mcg-6 2.5 mcg-2 5 mcg powde r for inhal ation 4 06:10:53 active Not Available Not availab le 0 Not Available Not Available [facility] 11/13/2023 06:10:53 trama dol 50 mg table t 4 15:19:52 TAKE 1 TABL ET BY MOUT H EVER Y 6 HOUR S active Not Available Not availab le 0 Not Available Not Available [facility] 11/26/2023 15:19:52 cepha lexin 500 mg capsu le 5 22:04:51 TAKE 1 CAPS ULE BY MOUT H TWIC E KAREN Y FOR 7 DAYS active Not Available Not availab le 0 Not Available Not Available [facility] 02/20/2024 22:04:51 nitro furan toin monoh ydrat e/mac rocry stals 100 mg capsu le 5 22:04:51 TAKE 1 CAPS ULE BY MOUT H EVER Y 12 HOUR S FOR 5 DAYS active Not Available Not availab le 0 Not Available Not Available [facility] 02/20/2024 22:04:51 sulfa metho xazol e 800 mg-tr imeth oprim 160 mg table t 22:04:51 TAKE 1 TABL ET BY MOUT H TWIC E KAREN Y FOR 5 DAYS active Not Available Not availab le 0 Not Available Not Available [facility] 02/20/2024 22:04:51 doxyc yclin e hycla te 100 mg capsu le 22:59:43 TAKE 1 CAPS ULE BY MOUT H TWIC E KAREN Y FOR 10 DAYS active Not Available Not availab le 0 Not Available Not Available arturo - External Data Service - prod 05/28/2024 22:59:43 amoxi cilli n 875 mg-po tassi um clavu lanat e 125 mg table t 22:59:43 TAKE 1 TABL ET BY MOUT H TWIC E KAREN Y FOR 10 DAYS 05/29 aborted Not Available Not availab le 0 Not Available [facility] 05/29/2024 10:09:43 clind amyci n HCl 300 mg capsu le 22:59:43 TAKE 1 CAPS ULE BY MOJOSEPH W[place]ack THRE E TIME S KAREN Y FOR 10 DAYS 05/29 aborted Not Available Not availab le 0 Not Available [facility] 05/29/2024 10:09:47 Vitals Date Recorded Body height Body mass index (BMI) Body weight Provider Name and Address Organization Details Last Updated DateTime 02/21/2024 157.48 cm 16.3 kg/m2 59819.72 g JARRETT ESPARZA [facility] 02/21/2024 10:05:44 Date Recorded Body height Body mass index (BMI) Body weight Provider Name and Address Organization Details Last Updated DateTime 05/29/2024 157.48 cm 16.3 kg/m2 55529.72 g [facility] 05/29/2024 10:09:05 Date Recorded Body height Body mass index (BMI) Body weight Provider Name and Address Organization Details Last Updated DateTime 08/17/2023 157.48 cm 18.3 kg/m2 20942.24 g CHANDRA COLEY [facility] 08/17/2023 10:31:58 Date Recorded Body height Body temperature Body mass index (BMI) Body weight Provider Name and Address Organization Details Last Updated DateTime 11/13/2023 157.48 cm 97.3 [degF] 18.3 kg/m2 14768.24 g JARRETT ESPARZA [facility] 11/13/2023 10:39:20 Date Recorded Body height Body mass index (BMI) Body weight Provider Name and Address Organization Details Last Updated DateTime 12/25/2023 157.48 cm 18.3 kg/m2 39943.24 g JARRETT ESPARZA [facility] 12/25/2023 11:25:18 Social History Social History Observation Description Date Observed Sex Unknown 05/29/2024 Legal Sex Female Status Not (finding) 02/01/20 25 No social history survey screeners recorded No social history SDOH screeners recorded Functional Status None recorded. No Functional Screening assessment recorded No Functional SDOH screeners recorded Mental Status None recorded. No Mental Screening assessment recorded No Mental SDOH screeners recorded Family History Nothing Reported. Medical History Condition Response Allergies/Hayfever N Coronary Artery Disease N Anxiety/Depression N Breathing or lung disorders Y Emphysema N Nerve Disorders N Thyroid Problems N COPD N Pacemaker N Anemia N Kidney/Bladder Problems N Vascular Disease N Heart Trouble N Heart Attack (MS) N Gastrointestinal Disease N Cholesterol N Diabetes N Autoimmune disease N Bleeding Disorder N Orthotics N Arthritis Y Seizures/Epilepsy N Blood Clot N AIDS/HIV N Congestive Heart Failure (CHF) N Acid Reflux (GERD) N Cancer Y Stroke N Asthma N Circulation Problems N Peripheral Vascular Disease N Sleep Apnea N Hepatitis N Heart Disease N Rheumatoid Arthritis N Arrhythmia N Pulmonary Embolism N Headaches N Fibromyalgia N Hypertension N Osteoporosis N Gynecological HistoryNo gynecological history recorded. Obstetrics History GPAL:G 0 P 0 0 0 0 Past Encounters Encounter ID Performer Location Encounter Start Date Encounter Closed Date Diagnosis/Indication Diagnosis SNOMED-CT Code Diagnosis ICD10 Code Diagnosis IMO Codes Diagnosis Note [id number] MD [facility] Allen [address] [place] [address] 08/17/2023 09:39:38 09/05/2023 07:23:41 Pain of right shoulder joint 8879216146 3869318 M25.572 [id number] KENNY Ruelas [address] floor [address] [place] [address] 11/13/2023 10:20:26 12/04/2023 08:48:53 Closed fracture of neck of femur 263310426 S72.001A Osteoarthr itis of right hip joint 0752148625 80080 M16.11 [id number] KENNY Ruelase [address] [place] [address] 12/25/2023 11:11:08 01/23/2024 19:42:13 Closed fracture of neck of femur 039676618 S72.001A [id number] Mayra Hess PA-C [facility] [address] [place] [place] [address] 02/21/2024 09:31:54 03/07/2024 12:27:52 Closed fracture of neck of femur 581657306 S72.001A [id number] Mayra Hess PA-C [facility] [address] [place] [address] 05/29/2024 09:56:17 06/17/2024 09:09:43 Closed fracture of neck of femur 946126579 S72.001A Health Concerns Section Related Observation LastModified by Organization Detadriana ls LastModified Time None Recorded Concern Status LastModified by Organization Details LastModified Time None Recorded SDOH Concern Status LastModified by Organization Luis Daniel LastModified Time None Recorded Advance Directives Directive None Recorded Payers Insurance Date Sequence Insurance Name Policy Number Policy Bueno Covered Member ID Bueno Member ID Guarantor Name 06/17/2024 1 [facility] (POS) [id number] Danika Tanner [id number] Danika Tanner Notes Date Note Type Note Provider Name and Address Organization Details Recorded Time 08/17/2023 text/html Chief Complaint: Right shoulder pain HPI: This is a 78-year-old jlgtq-xiyl-jvqwnsui retired woman with history of previous right open decompression surgery who notes return of symptoms over the past several years. No new injury that she can recall. Pain felt over the lateral brachium, exacerbated by overhead reach, abduction, bring the arm across her body and rotation behind the back. Aware of occasional crepitus. Has tried Tylenol for this without improvement. No physical therapy. No recent injections. PMH: Arthritis, breathing/lung disorder, history of skin cancer PSH: Bilateral shoulder surgery, left hand surgery, surgery for skin cancer, hernia repair Meds: Budesonide, Combivent, diltiazem, duloxetine, Eliquis, clonazepam, hydrocodone, Trelegy, Xopenex, leave albuterol, propafenone Allergies: Cats, dust, pollen. Codeine. Social Hx: Retired. Single, with children. Denies tobacco or alcohol use. Family Hx: noncontributory ROS: Negative x12 except as noted above in the HPI Past family, medical, social history and review of systems have been reviewed and updated on the medical history sheet saved to the patient's chart. A 12-point review of systems is negative x12 except as noted above and/or on the medical history sheet. Examination: 78-year-old woman in no acute distress. 5 feet 2 inches, 100 pounds. On exam of the right upper extremity, skin over the shoulder is intact. No effusion, no gross atrophy. Tender to palpation over the bicipital groove and along the subacromial space. Active and passive forward elevation 160, external rotation 60, internal rotation L3. 5 -/5 strength with empty can, 5/5 with external rotation, 4+/5 with internal rotation. Severe pain and weakness with bearhug maneuver. Mildly positive Yergason's. Sensation intact in an axillary distribution. Fires EPL, FPL and intrinsics. Hand is warm and well-perfused. Imaginv of the Right shoulder ordered and obtained at [facility] today were reviewed during the visit. These demonstrate good preservation of glenohumeral joint space. Mild to moderate AC arthrosis. No proximal migration humeral head. No dystrophic calcium deposition. Humeral head centered on axillary view. Impression: 78-year-old [id number] woman with chronic right shoulder pain in the setting of previous open decompression surgery. Exam suggestive of suspected right anterior superior rotator cuff tear. Plan: Given the patient's medical comorbidities, we both agree avoiding surgery would be preferable. Will go forward with a cortisone injection today in hopes of improving pain related to her tears. If helpful, these can be repeated as often as every 3 months. [employer] speech recognition violin repairer software was used to create portions of this document. An attempt at proofreading has been made to minimize errors. Please call for corrections. Tonia Downing MD [facility] [address], [place], [address], [facility] - [facility] 09/07/2023 16:16:02 11/13/2023 text/html I am seeing the patient today under the supervision of Dr. Hancock who was available but who did not see the patient. History is taken from the patient HPI: Patient here today in follow-up 78-year-old female status post right femur ORIF on 10/11/2023 for an intertrochanteric fracture. This was repaired by Dr. Fuentes. Back today doing well. She is in a wheelchair oxygen dependent here with her daughter. She is able to ambulate at home with physical therapy and a walker. Still having some pain. Still taking oxycodone but nearly out of it. Past family, medical, social history and review of systems has been reviewed, updated and is located in the patient s chart. EXAMINATION: Patient alert oriented x 3. She can achieve terminal extension with her right knee but it is a bit stiff. She is unable to do a straight leg raise. She is noted to be cachectic thin elderly female. Ankle range of motion intact. She is alert oriented and appropriate. X-RAYS: Were ordered, obtained and independently reviewed today in our office. There were 2 views of the right femur performed in the findings are as follows: Shows well-placed nail with appropriate reduction of a right intertrochanteric hip fracture. No evidence of early bony callus formation as of yet. DIAGNOSIS: Right hip intertrochanteric hip fracture status post ORIF 10/11/2023 MEDICAL DECISION MAKING: Patient will continue home physical therapy. She is given outpatient orders to transition to when this runs out. She will recheck with us in 6 weeks. She is provided tramadol instead of oxycodone. She should wean off her oxycodone. Questions answered on her behalf and follow-up made. Today's visit involved examining the patient, reviewing the history, reviewing the radiographic studies, counseling the patient regarding treatment options, and the administrative tasks including placing orders, preparing patient information and home handouts and preparing the visit note. This note was generated with [facility] speech recognition violin repairer dictation software. Please excuse any errors that may have been overlooked during review of this note. Sometimes, these errors may affect the content or meaning of a given sentence. Please call for corrections. Mayra Hess PA-C [address], [place], [address], [place] - [facility] 11/13/2023 14:39:25 12/25/2023 text/html I am seeing the patient today under the supervision of Dr. Hancock who was available but who did not see the patient. History is taken from the patient HPI: Patient here today status post right femur ORIF on 10/11/2023. No pain at rest. She had an ORIF by Dr. Rodriguez. She is having otherwise good pain control. Home therapy ended last week. Daughter tells me she is not stable on her feet and probably needs outpatient therapy however they have significant transportation issues. Patient tells me she had her SI joint injected just prior to her fall. Past family, medical, social history and review of systems has been reviewed, updated and is located in the patient s chart. EXAMINATION: Patient is alert oriented x 3 mood and affect appropriate within normal limits. Patient tolerates gentle internal/external rotation of her right hip. She is able to do a straight leg raise. She is noted to be an extremely thin this afternoon cachectic female. Patient is oxygen dependent seated comfortably in the wheelchair. X-RAYS: Were ordered, obtained and independently reviewed today in our office. There were 2 views of the right hip performed in the findings are as follows: Shows well-placed hardware in appropriate position with no acute changes. She has evidence of early bony callus formation. DIAGNOSIS: Right hip pinning ORIF 10/11/2023 MEDICAL DECISION MAKING: Patient is doing well. She is given outpatient physical therapy orders. I would recommend this. It sounds as though she still has difficulties at baseline with balance. She wants to be able to walk with a cane however from discussion with her today it does not sound like she is safe. She should continue to use the walker in the meantime. Follow-up with us in 8 weeks. Call sooner if she has any problems or concerns. Today's visit involved examining the patient, reviewing the history, reviewing the radiographic studies, counseling the patient regarding treatment options, and the administrative tasks including placing orders, preparing patient information and home handouts and preparing the visit note. This note was generated with [facility] speech recognition violin repairer dictation software. Please excuse any errors that may have been overlooked during review of this note. Sometimes, these errors may affect the content or meaning of a given sentence. Please call for corrections. Mayra Hess PA-C [address] [facility] [address] [facility], [place], [address], [facility] - [facility] 12/25/2023 12:54:26 02/21/2024 text/html I am seeing the patient today under the supervision of Dr. Rodriguez who was available but who did not see the patient. History is taken from the patient HPI: Patient here today in follow-up of her right femur ORIF on 10/11/2023. She is here with her daughter. Notable today is that her and her daughter are verbally aggressive to each other. Here today concerning her right hip and having significant right greater trochanteric bursa pain. Patient insist that she is active at home daughter insist that she is not active and in bed all day. Patient resides by herself daughter lives next door. She is oxygen dependent. Home therapy ran out. Patient is not willing to go to outpatient therapy. Past family, medical, social history and review of systems has been reviewed, updated and is located in the patient s chart. EXAMINATION: Patient has exquisite tenderness to palpation over the right greater trochanteric bursa. This is easily reproducible. This is also reproducible to resisted right hip abduction. Patient is slow to transition out of wheelchair and I do so with assistance as well as she has her oxygen. She is otherwise alert and appropriate. Patient is noted to be severely cachectic in office and on oxygen while seated. X-RAYS: Were ordered, obtained and independently reviewed today in our office. There were [2 views of the right hip performed in the findings are as follows: Shows a healing right intertrochanteric fracture with evidence of bony callus formation which is still incomplete. DIAGNOSIS: Right intertrochanteric hip fracture status post ORIF 10/11/2023 MEDICAL DECISION MAKING: We discussed greater trochanteric bursa and the underlying weakness and strengthening that is needed to resolve it. She is not willing to go to physical therapy. She tells me she will continue her home exercises and does not want anything else completed. Her right greater trochanteric bursa was injected per usual sterile technique at this time which she tolerated well. Follow-up made in 3 months. Today's visit involved examining the patient, reviewing the history, reviewing the radiographic studies, counseling the patient regarding treatment options, and the administrative tasks including placing orders, preparing patient information and home handouts and preparing the visit note. This note was generated with [facility] speech recognition violin repairer dictation software. Please excuse any errors that may have been overlooked during review of this note. Sometimes, these errors may affect the content or meaning of a given sentence. Please call for corrections. aMyra Hess PA-C [address] [place] [address], [place], [address], [facility] 03/07/2024 11:40:07 05/29/2024 text/html I am seeing the patient today under the supervision of Dr. Rodriguez who was available but who did not see the patient. History is taken from the patient HPI: Patient here today 79-year-old female returns with her son-in-law concerning recheck on her right femur she is status post ORIF back in October 2023. She is an extremely cachectic female oxygen dependent in very poor health with severe COPD currently being treated for more than 6 weeks for complications of upper respiratory infection. She remains on prednisone and 3 different antibiotics with little benefit and relief. She is notably coughing in the office today. At last visit we had injected her right greater trochanteric bursa with about 2 weeks of relief but not significant relief. She thinks it still working somewhat but it is not great. Past family, medical, social history and review of systems has been reviewed, updated and is located in the patient s chart. EXAMINATION: Extremely cachectic thin female seated comfortably in a wheelchair. She is notably severely underweight. Alert and appropriate has her oxygen on and use. Coughing frequently. Patient is able to transition and walk very limited distances. She is warper tender to palpation over her right greater trochanteric bursa and tuberosity. X-RAYS: Were ordered, obtained and independently reviewed today in our office. There were 2 views of the right femur performed in the findings are as follows: She has a well-healed fracture with hardware which remains in appropriate location with no acute changes. DIAGNOSIS: Right hip ORIF October 2023 with chronic right hip greater trochanteric bursitis MEDICAL DECISION MAKING: Patient is in poor health and oxygen dependent. Unable to return to the OR for hardware removal. This is discussed with her. She got limited benefit from the injection and we both agree that there is no need to repeat this at this time. She would benefit from significant weight gain and strengthening however she does not tolerate either. Unfortunately options are extremely limited. She tells me she is going to leave it as is currently and will follow-up with me if it becomes much more severe. Questions are answered on their behalf. Today's visit involved examining the patient, reviewing the history, reviewing the radiographic studies, counseling the patient regarding treatment options, and the administrative tasks including placing orders, preparing patient information and home handouts and preparing the visit note. This note was generated with [facility] speech recognition violin repairer dictation software. Please excuse any errors that may have been overlooked during review of this note. Sometimes, these errors may affect the content or meaning of a given sentence. Please call for corrections. Mayra Hess PA-C [address] [place], [place] [address] [address], [place], [address], [facility] - [facility] 05/29/2024 10:39:10 Care Team Name Role Member ID Specialty Address Phone SOFIYA SIMPSON MD Primary Care Provider [id number], [place], [place] OBGyn Episode No OBEpisode recorded.
--- OUTSIDE RECORDS SUMMARY | 2025-01-31 11:06 | XMS_ITS | Clinical Summary ---
Author Organization [facility] Address [address] [place] [address] Care Team Providers Care Cosmetic Sales Consultant Name Role Phone Hailey Grady Unavailable System, Provider Not In Primary Care Provider Un available Allergies Active Allergy Reactions Criticality Noted Date Comments Cat Dander Unknown 08/18/2008 Hydromorphone Anaphylaxis High 08/23/2021 Dust Mite Other (See Comments) 06/19/2008 Latex Rash Low 08/23/2021 Morphine Anaphylaxis High 08/23/2021 Other Other (See Comments) 08/23/2021 Ragweed Pollen Other (See Comments) 08/07/2012 Tetanus-Diphtheria Toxoids-Td Swelling 2007 Medications albuterol 2.5 mg /3 mL (0.083 %) nebulizer solution Inhale 2.5 mg. 05/01/2018 Active TRELEGY ELLIPTA 200-62.5-25 mcg DsDv 05/27/2021 Active ipratropium-albu teroL (COMBIVENT RESPIMAT) 20-100 mcg/actuation Mist Inhale. Active budesonide (PULMICORT) 0.5 mg/2 mL nebulizer solution Inhale 0.5 mg. Active CARDIZEM LA 120 mg 24 hr tablet 07/18/2021 Act stephanie apixaban (ELIQUIS) 5 mg Tab Take 5 mg by mouth. 05/30/2019 Active levalbuterol (XOPENEX) 1.25 mg/3 mL nebulizer solution 07/29/2021 Active Immunizations Immunization Administration Dates Next Due COVID-19 Vaccine (MODERNA) 06/28/2021,11/30/2020,05/05/2020,04/06/2020 Social History Tobacco Use Types Packs/Day Years Used Date Smoking Tobacco: Former Cigarettes 1 57 1 959 - 2015 Smokeless Tobacco: Never Alcohol Use Standard Drinks/Week Comments Yes 0 (1 standard drink = 0.6 oz pure alcohol) 1 glass of wine every couple of months Comments Unknown Sex and Gender Information Value Date Recorded Sex Assigned at Female 08/02/2021 2:25 PM EDT Legal Sex Female 2:21 PM EDT Gender Identity Female 08/02/2021 2:25 PM EDT Sexual Orientation Not on file Last Filed Vital Signs Vital Sign Reading Time Taken Comments Blood Pressure 116/64 08/23/2021 3:13 PM EDT Pulse 86 08/23/2021 3:13 PM EDT Temperature 35.8 C (96.5 F) 08/23/2021 3:13 PM EDT Respiratory Rate 18 08/23/2021 3:13 PM EDT Oxygen Saturation 98% 08/23/2021 3:13 PM EDT 4L Inhaled Oxygen Concentration - - Weight 47.6 kg (105 lb) 08/23/2021 3:13 PM EDT Height - - Body Mass Index - - Plan of Treatment Health Maintenance Due Date Last Done Comments Blood Pressure 1945 Depression Screening 1957 Hepatitis C Screening 04/14/1963 DTaP,Tdap,and Td Vaccines (1 - Tdap) 1964 Zoster Vaccine (1 of 2) 04/14/1995 Osteoporosis Screening 2010 COVID-19 Vaccine ( season) 2024 12/24/2021, 06/28/2021, 11/30/2020, Additional history exists Influenza Vaccine (#1) 2024 , 10/27/2019, 01/05/2017, Additional history exists Pneumococcal Vaccine: 50+ Years Completed 08/07/2019, 07/03/2015, 12/24/2012 Lung Cancer Screening Discontinued 09/06/2021 Meningococcal B Vaccines Aged Out No longer eligible based on patient's age to complete this topic Meningococcal Vaccines Aged Out No lo nger eligible based on patient's age to complete this topic Procedures Procedure Name Priority Date/Time Associated Diagnosis Comments CT CHEST WO CONTRAST Routine 09/06/2021 1:18 PM EDT Chronic obstructive pulmonary disease, unspecified COPD type from Last 3 Months or Most Recently Relevant to Health Maintenance Results * CT Chest WO Contrast (09/06/2021 1:18 PM EDT) Anatomical Region Laterality Modality Chest Computed Tomogra phy 09/06/2021 5:55 PM EDT Narrative 09/06/2021 5:51 PM EDT EXAM DESCRIPTION: CT Thorax without enhancement TECHNIQUE: Noncontrast exam performed, with axial helical images from the thoracic inlet through diaphragm were obtained. Multiplanar reformats were performed at the console and made available for review. COMPARISON: NM LUNG PERFUSION DIFFERENTIAL dated 2021-09-06 10:40:36; OUTSIDE STUDY FOR STORAGE CT BODY dated 2020-09-14 07:54:50 INDICATION: COPD FINDINGS: LUNGS/PLEURA: Moderate biapical scarring. Advanced emphysema throughout both lungs with large bulla in the left lower lobe. Scattered calcified pulmonary granulomas. Consolidation and ground-glass opacity within the anteromedial left upper lobe demonstrates increased conspicuity from outside facility CT examination in September,. MEDIASTINUM/VASCULAR: Ascending thoracic aorta is normal in caliber. No significant coronary artery calcification. No pericardial effusion. LYMPH NODES: No suspicious lymphadenopathy. BONES/SOFT TISSUES: No suspicious osseous or soft tissue lesion. Chronic left- sided rib fracture deformities. UPPER ABDOMEN: Partially visualized unenhanced upper abdomen is unremarkable. IMPRESSION: 1. Consolidative opacity and surrounding ground-glass within the anteromedial left upper lobe appears increased from prior outside facility CT examination September 14, 2020. Differential to include indolent infectious/inflammatory process, however neoplastic process would be difficult to exclude. The presence of unexpected and/or significant findings was communicated to the ordering clinician per departmental protocol. 2. Advanced emphysema. 3. Other findings as described in the body of the report above. Procedure Note Armani Campos MD - 09/06/2021 EXAM DESCRIPTION: CT Thorax without enhancement TECHNIQUE: Noncontrast exam performed, with axial helical images from the thoracicinlet through diaphragm were obtained. Multiplanar reformats wereperformed at the console and made available for review. COMPARISON: NM LUNG PERFUSION DIFFERENTIAL dated 2021-09-06 10:40:36; OUTSIDE STUDY FOR STORAGE CT BODY dated 2020-09-14 07:54:50 INDICATION: COPD FINDINGS: LUNGS/PLEURA: Moderate biapical scarring. Advanced emphysema throughoutboth lungs with large bulla in the left lower lobe. Scattered calcifiedpulmonary granulomas. Consolidation and ground-glass opacity within theanteromedial left upper lobe demonstrates increased conspicuity from outside facility CT examination inA2020. MEDIASTINUM/VASCULAR: Ascending thoracic aorta is normal in caliber. Nosignificant coronary artery calcification. No pericardial effusion. LYMPH NODES: No suspicious lymphadenopathy. BONES/SOFT TISSUES: No suspicious osseous or soft tissue lesion. Chronicleft- sided rib fracture deformities. UPPER ABDOMEN: Partially visualized unenhanced upper abdomen isunremarkable. IMPRESSION: 1. Consolidative opacity and surrounding ground-glass within theanteromedial left upper lobe appears increased from prior outside facilityCT examination September 14, 2020. Differential to include indolentinfectious/inflammatory process, however neoplastic process would be difficult to exclude. The presence ofunexpected and/or significant findings was communicated to the orderingclinician per departmental protocol. 2. Advanced emphysema. 3. Other findings as described in the body of the report above. Coleman Prieto MD [facility] [place] [facility] ORDERABLES Final Result from Last 3 Months or Most Recently Relevant to Health Maintenance Insurance [facility] Care Teams Cosmetic Sales Consultant Relationship Specialty Start Date End Date Hailey Grady [address] [place] [id number] PCP - Insurance Assigned PCP 08/02/21 System, Provider Not In [address] [place], [place] [address] [place] [id number] PCP - General 12/20/21
--- OUTSIDE RECORDS SUMMARY | 2025-01-31 11:06 | XMS_ITS | Clinical Summary ---
Author Organization [facility] [address] [facility] Address [address] [place] [address] Phone Care Team Providers Care Carton Filler Name Role Phone Rickie Simpson MD Primary Care Provider [phone] Allergies Active Allergy Reactions Criticality Noted Date [...] failure with hypoxia 018 Overview (11/17/2023): Following [facility]. Last seen 06/14/2021. Plan to continue Trelegy 200 mcg, continue nebulized therapy, stop azithromycin MWF. No theophylline due to arrhythmias. Continue oxygen supplementation. Online pulmonary rehab. Start Xopenex. Continue budesonide. Referred to [facility] for evaluation for lung volume reduction interventions. Follow-up in 4 to 6 months. Oxygen dependent 10/17/2016 Vitamin D deficiency 02/17/2016 Anxiety 07/03/2015 Lung nodules 12/24/2012 Overview (11/17/2023): Seeing Dr. Lara and being followed Last Assessment & Plan: Ms. Kraus is a 78 y/o female who is being followed by the [facility] with LDCT scans for pulmonary [...] (11/17/2023): Failed surgery. Patient is follow and [facility]. She is prescribe hydrocodone/APAP there. Also treated with injections to the SI joints Neuropathy 10/02/2007 Immunizations Immunization Administration Dates Next Due Influenza trivalent, 0.5mL [...] PROCEDURE: HISTORICAL BACK SURGERY HAND SURGERY PROCEDURE: MT UNLISTED PROCEDURE HANDS/FINGERS; COMMENT: to repair a nerve SHOULDER SURGERY PROCEDURE: MT UNLISTED PROCEDURE SHOULDER Medical History Medical History Date Comments Lumbago 10/02/2007 DX:Lumbago Neuropathy 10/02/2007 DX:Neuropathy Atrial fibrillation ([facility] V24, [facility] V28) 10/02/2007 DX:Atrial fibrillation ([facility]) Osteoporosis 06/19/2008 DX:Osteoporosis Anxiety 07/03/2015 DX:Anxiety COPD (chronic obstructive pu lmonary disease) ([facility] V24, [facility] V28) 11/25/2011 DX:COPD (chronic o bstructive pulmonary disease) ([facility]) History of squamous cell car cinoma of [...] Refusing colonoscopy and mammogram, see notes from [id number]. Lung nodules were stable, no additional f/u [...] AM EST Sexual Orientation Not on file Last Filed [...] 05/22/2024 11:36 AM EDT Plan of Treatment Upcoming Encounters Date Type Department Care Team (Late st Contact Info) Description 02/04/2025 10:50 AM EST Office Visit [facility] [address] [place] [phone] Lauri Fernández MD [address] [place] [address] [address] [place] [phone] Health Maintenance Due Date Last Done Comments DTaP,Tdap,and Td Vaccines (1 - Tdap) 1964 Colorectal Cancer Screening: Stool Based Tests (FOBT/FIT) 01/15/2022 Falls Risk Assessment 01/15/2022 Medicare Annual Wellness Visit 01/15/2022 Osteoporosis Screening (Bone Density Screening) 01/15/2022 Social Influencers of Health Screening 01/15/2022 Depression Screening 02/07/2024 COVID-19 Vaccine ( season) 2024 11/14/2022, 12/24/2021, [...] Procedure Name Priority Date/Time Associated Diagnosis Comments LIPID PANEL Routine 01/10/2022 HM HEPATITIS C SCREENING Routine 12/24/2012 from Last 3 Months or Most Recently Relevant to Health Maintenance Results * (ABNORMAL) Lipid panel (01/10/2022) LDL/HDL Ratio [...] Documents on File Type Date Recorded Patient Cancer Spec Expl anation Health Care Decision (hx) 02/10/2017 [...] (hx) 02/10/2017 AD GUTIÉRREZ DIRECTIVE Care Teams Carton Filler Relationship Specialty Start Date End Date Rickie Simpson MD [address] [place] [address] PCP - General Internal Medicine 03/12/24
--- OUTSIDE RECORDS SUMMARY | 2025-01-31 11:06 | XMS_ITS | Encounter Summary ---
Author Organization [facility] Address [address] [place] [address] Care Team Providers Care Change Manager Name Role Phone Hailey Grady Primary Care Provider [phone] Hailey Grady Unavailable Hailey Grady Primary Care Provider [phone] System, Provider Not In Primary Care Provider Un available Encounter Details Date Type Department Care Team (Late st Contact Info) Description 09/02/2021 Telephone [facility] [place] [facility]UC[facility] Nuclear Medicine [address] [address] Coleman Prieto MD [address] [place] [id number] Social History Tobacco Use Types Packs/Day Years Used Date Smoking Tobacco: Former Cigarettes 1 57 1 9 - 2014 Smokeless Tobacco: Never Alcohol Use Standard Drinks/Week Comments Yes 0 (1 standard drink = 0.6 oz pure alcohol) 1 glass of wine every couple of months Comments Unknown Sex and Gender Information Value Date Recorded Sex Assigned at Female 08/02/2021 2:25 PM EDT Legal Sex Female 2:21 PM EDT Gender Identity Female 08/02/2021 2:25 PM EDT Sexual Orientation Not on file documented as of this encounter Plan of Treatment Not on file documented as of this encounter Visit Diagnoses Not on filedocumented in this encounter Care Teams Change Manager Relationship Specialty Start Date End Date Hailey Grady [address] [place] [address] PCP - General 08/02/21 12/13/21 Hailey Grady [address] [place] [id number] PCP - Insurance Assigned PCP 08/02/21 Hailey Grady [address] [place] [id number] PCP - General 12/14/21 12/19/21 System, Provider Not In [address] [place] [id number] PCP - General 12/20/21 documented as of this encounter
[2025-01-31 11:07] VITALS: BP 90/52; PULSE 93; O2SAT 98; BMI 15.7
--- NOTE | 2025-01-31 11:07 | A.OFFVIS_ITS ---
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 She has currently been follow-up at the lung cancer screening program. Currently receiving Advair and also Spiriva. Having issues with hoarseness. She does have a rescue inhaler which is Combivent. She also has a nebulizer. She has not had any recent exacerbations. Over the only issue is to hoarseness a comes and goes. Denies any thrush and she reads as well. She was supposed to start pulmonary rehab but she has been dealing with other active medical issues including her wrist but still hurting her and she cannot use it well. We talked about potentially I am doing online pulmonary rehab which should be very helpful for her at this time. She continues to be on azithromycin for her chronic bronchitis. This medications have been very effective. She had an EKG done by Cardiology a week ago and per report was okay. She was then the 500 mg dose but with the hope of bring it down to 250 when she is doing better. with increasing symptoms the patient will have an x-ray today. If the x-rays abnormal consider repeating the CT scan sooner. 10/17/2022 the patient is here for pulmonary follow-up visit. The patient overall has been doing well. She continues on her respiratory therapy. She did have to be admitted briefly to [facility] after developing atrial fibrillation with rapid ventricular response. She did talk about the complex of the cardiac and pulmonary medications and also the beta affect potentially causing her increase tachycardia and palpitations. Therefore will go ahead and switch are viewed oral to levo albuterol to see if this provides some degree of stability. In the meantime she did have a CT scan of the chest back in March 2022 at [facility] demonstrating her pulmonary nodules have been stable and also slightly decreasing in size. She is participating in the lung cancer screening program and she is scheduled to have a repeat CT scan coming up soon. The patient typically develops increasing chest congestion and does well on the azithromycin over the winter months. Although, she is on antiarrhythmic agents and patient is aware that taking antiarrhythmic agents and azithromycin macrolide therapy can resulting worsening QT prolongation. She states that she done before she is tolerating it well. Therefore I did request she get an EKG upon starting the medicine and we can also have serial EKGs to make sure that there is stable QT intervals. 04/17/2023 the patient is here for a pulmonary follow-up visit. The patient has been doing fair. She tried the Xopenex but it did not help her breathing as much as the Combivent. Therefore she went back on the Combivent. I did explain to her that if her atrial fibrillation is acting up with increased heart rate then she may want to just use levalbuterol during those episodes. Meantime she continues on high-dose Trelegy. She has not on prednisone which is reassuring. She also has nebulized therapy including budesonide that are recent to the pharmacy. She will be stopping the macrolide therapy this month. Clinically she is doing well from a respiratory status. She did have a recent CT scan of the chest done at [facility] which demonstrated a new pulmonary nodule. She was seen by thoracic surgery and they recommended a CT scan in 3 months time. Indeed the patient is high risk for any diagnostic interventions. She has advanced respiratory failure. Would not advise her undergoing any type of biopsy. However, the nodule appears to be concerning his increasing size then would consider stereotactic radiation. For now will just have to wait for the repeat CT scan which is planned for July of this year. 11/28/2023 the patient is here for a pulmonary follow-up visit. Since we last spoke she had a fall and she fractured her right hip. She was admitted to [facility] and then discharged over to [facility]. There she received therapy. She is now back at using a walker although she is very limited because of pain. Breathing chavez she is doing okay. Because of all the issues going on the patient was not able to get her CT scan at [facility]. She does have 1 nodule that has been concerning in appearance. She had to cancel her CT scan. She is going to wait another month or so to receive physical therapy and she is going to call to reschedule the CT scan. If she has any issues she can always call here and I can order it for her. The patient will continue her current respiratory therapy. Her oxygenation has actually been better. She had been able to tolerate 2 L at rest and 3 L with activity with a good oxygenation. Has not had to use the higher levels of oxygen which is reassuring. At this point the patient is doing well will plan to follow-up in April. If she has any issues prior to that she will call for an earlier assessment. 04/19/2024 the patient is here for pulmonary follow-up visit. She is still under the weather. She has been sick for about 2 weeks. She was having significant chest congestion nasal congestion and cough. In although she is feeling a little better but she still having a lot of congestion difficulty expectorating. She is using Mucinex partial response. In addition to that she was found to have a new pulmonary nodule that has to be followed closely. She is following closely also with thoracic surgery. Her CT scan scheduled for next week. Therefore will go ahead and treat her for a lower respiratory infection to make sure with clear air as much as possible from her underlying acute illness to make sure that we see proper findings on the CT scan. She continues with the oxygen therapy with good effect. Continues with inhaler therapy also with good effect. Will plan to follow-up sometime in the fall. If she develops any worsening symptoms she will call. In the meantime will request her CT scan from next week. 10/24/2024 the patient is here for pulmonary follow-up visit. Seems to be more short of breath in a little unsteady on her feet and has not been herself lately. Even with minimal activities of daily living the patient has been very short in the family has been uncomfortable leaving her on her own. The patient has been using her oxygen as prescribed. She continues on her respiratory therapy that had been very effective for her. She also continues on a small dose of prednisone. As far as additional therapies we can consider adding Ohtuvayre as a way to improve her respiratory capacity. We did have her undergo blood work. Her blood gas was reassuring with a normal pCO2. However, the patient is found to be significantly anemic with a hemoglobin of 7.3. I did call the patient and the daughter and explained to them my concerns. The pat aishwarya has had an issue with anemia previously. She has a hard time tolerating arm. The patient indeed may need to get a blood transfusion. Will have her get additional blood work on Monday. They are also going to monitor closely her symptoms. If she gets any worse shortness of breath and he had worsening dizziness or just any worse constitutional symptoms then the patient needs to go to the ER. I have put in the urgent referral to Hematology as she may benefit from iron infusions if not a blood transfusion. I also send a report to her primary care doctor in case they want to pursue different avenues of treatment. For now she will continue with the current respiratory therapy. 01/31/2025 the patient is here for pulmonary follow-up visit. Overall she is doing well with the current therapy. Continues to have dyspnea on exertion. Unfortunately she can not start the Ohtuvayre because of the high co-pay P of 76 out of a month. She is going to hold off. I do believe that she is a good candidate for roflumilast because of her weight issues. She continues on Trelegy continues using Combivent. She has been off prednisone and also been off antibiotics which is reassuring. Therefore will continue the current therapy she is really not a candidate for biologics either because she does not have any significant eosinophilia. Therefore will new and she will have a CAT scan sometime in the spring as part of the lung cancer screening program. I did review the study and appears that she does have some debris within the airways. Therefore, have to make sure that we follow-up with those abnormal findings. [facility] Medical History (Updated 10/31/24 @ 08:53 by Marzena Ramey NP) Anemia Insomnia Pulmonary nodules Chronic respiratory failure COPD (chronic obstructive pulmonary disease) Surgical History (Updated 10/31/24 @ 08:53 by Marzena Ramey NP) History of hip surgery Social History Household Members: Family Housing: House Are you a primary regular senior care provider to a significant other at home: Yes Patient Tobacco Use Status: Never used Tobacco Tobacco use type: Cigarette Years Smoked: 54 years service: No Current occupational status: disabled Current occupational exposures/hazards: No Review of Systems Const Reports daytime sleepiness, Reports difficulty sleeping and Denies night sweats ENT Denies change in voice, Denies lip swelling, Denies mouth pain, Reports nasal congestion, Reports nasal discharge and Denies tongue swelling Card Denies chest pain, Reports palpitations, Reports dyspnea and Reports dyspnea on exertion Resp Reports cough, Reports dyspnea and Reports dyspnea on exertion GI Denies abdominal pain Musc Reports as per HPI, Reports abnormal gait, Reports arthralgias, Reports joint swelling, Reports muscle weakness and Reports stiffness Neuro Denies Neuro-related abnormal movements and Reports abnormal gait Psych Denies no additional complaints Endo Reports palpitations Agustín/Lymph Denies easy bleeding and Denies lymphadenopathy Aller/Immun Denies lip swelling and Denies tongue swelling Physical Exam Vital Signs: Last Vital Signs Pulse 93 01/31/25 11:07 BP 90/52 L 01/31/25 11:07 Pulse Ox 98 01/31/25 11:07 Oxygen Delivery Method Nasal Cannula 01/31/25 11:07 Oxygen Flow Rate 3 01/31/25 11:07 BMI result Body Mass Index 15.7 Const General: alert Neck Neck: Yes normal visual inspection, Yes full ROM and Yes no lymphadenopathy Chest Chest palpation & inspection: normal inspection of the chest Resp Effort & Inspection: normal respiratory effort Auscultation: diminished lung sounds Cardio Rate: regular rate Rhythm: regular rhythm Heart sounds: S1 normal heart sound present and S2 normal heart sound present GI Palpation (GI): Soft to palpation and nontender Auscultation: normal bowel sounds Skin General skin exam: rashes and/or lesions noted Assessment & Plan Assessment & Plan (1) COPD (chronic obstructive pulmonary disease): Code(s): J44.9 - Chronic obstructive pulmonary disease, unspecified Category: Medical Qualifiers: COPD type: COPD with acute lower respiratory infection Qualified Code(s): J44.0 - Chronic obstructive pulmonary disease with (acute) lower respiratory infection (2) Chronic respiratory failure: Comment: Due to chronic stable COPD Code(s): J96.10 - Chronic respiratory failure, unspecified whether with hypoxia or hypercapnia Category: Medical Qualifiers: Respiratory failure complication: hypoxia Qualified Code(s): J96.11 - Chronic respiratory failure with hypoxia (3) Pulmonary nodules: Code(s): R91.8 - Other nonspecific abnormal finding of lung field Category: Medical (4) Insomnia: Code(s): G47.00 - Insomnia, unspecified Category: Medical Qualifiers: Insomnia type: primary Qualified Code(s): F51.01 - Primary insomnia (5) Anemia: Code(s): D64.9 - Anemia, unspecified Category: Medical Qualifiers: Anemia type: unspecified type Qualified Code(s): D64.9 - Anemia, unspecified Plan continue Trelegy 200mcg continue combivent Continue nebulized therapy not a candidate for Biologics based on Eosinophils Ohtuvayre nebs, holding off, copay is 76.00/month Continue oxygen supplementation Xopenex as meeded CT chest at [facility] 2025 RADS 2 F/U 4 months Medications: New ipratropium bromide administer into each nostril 2 sprays intranasal TID PRN 45 mL 6RF allergy symptoms 90 days Coding Level of Care Code Est Pt Level 4 (10045) Diagnoses Chronic obstructive pulmonary disease with acute lower respiratory infection J44.0 COPD type: COPD with acute lower respiratory infection Chronic respiratory failure with hypoxia J96.11 Respiratory failure complication: hypoxia Pulmonary nodules R91.8 Primary insomnia F51.01 Insomnia type: primary Anemia, unspecified type D64.9 Anemia type: unspecified type Time Spent (min) 17
== END 2025-01-31 11:38 | disposition home or self-care (01) ==
LOC: HO.HPS 11:05
PROVIDERS: PCP Internal Medicine; Visit Provider Hospitalist
DX: J44.0 Chronic obstructive pulmonary disease with (acute) lower respiratory infection (principal); J96.11 Chronic respiratory failure with hypoxia; R91.8 Other nonspecific abnormal finding of lung field; F51.01 Primary insomnia; D64.9 Anemia, unspecified
CPT/HCPCS: 99214

== ENCOUNTER → 2025-01-31 11:04 | Outpatient (BNVA) | payer OTHER, SELFPAY | PROVIDERS: PCP Internal Medicine; Visit Provider Hospitalist | DX: J44.0 Chronic obstructive pulmonary disease with (acute) lower respiratory infection (principal); J96.11 Chronic respiratory failure with hypoxia; R91.8 Other nonspecific abnormal finding of lung field; F51.01 Primary insomnia; D64.9 Anemia, unspecified; Z79.899 Other long term (current) drug therapy | CPT/HCPCS: 99212 ==